=== PATIENT | male | born 1955 | race Caucasian/White ===

== ENCOUNTER → 2018-01-09 12:31 | Outpatient (CLI) | payer MEDICAID, SELFPAY ==
[2018-01-09 13:04] LABS: HCT 50.6 % (40.0-50.0); HGB 16.6 g/dL (13.5-17.5); Mean Corp. HGB Concentration 32.8 g/dL (32.0-36.0); Mean Corpuscular Volume 85.3 fL (80-95); Mean Platelet Volume 9.7 fL (8.0-11.0); Platelet Count 215 x1000/uL (130-400); RBC 5.93 m/cumm (4.50-6.00); RBC Distribution Width 15.4 % (11.8-14.1); White Blood Cell Count 6.84 k/cumm (4.4-10.8)
[2018-01-09 13:23] LABS: Hemoglobin A1C 7.3 % (4.5-6.2)
[2018-01-09 13:52] LABS: ALT 23 U/L (12-78); AST 15 U/L (15-37); BUN 21 mg/dL (7-18); CREATININE 1.07 mg/dL (0.70-1.30)
[2018-01-09 13:54] LABS: Cholesterol 208 mg/dL (50-200); Triglyceride 138 mg/dL (30-150)
== END ==
PROVIDERS: PCP Family Medicine; Visit Provider Dermatology
DX: E11.9 Type 2 diabetes mellitus without complications (principal); L40.0 Psoriasis vulgaris; Z79.899 Other long term (current) drug therapy
CPT/HCPCS: 36415; 84520; 85027; 82465; 82565; 83036; 84450; 84460; 84478

== ENCOUNTER 2018-01-31 11:15 | Outpatient (CLI) | payer MEDICAID, SELFPAY ==
[2018-02-03 14:19] LABS: TB Interpretation Negative (NEGAT)
== END 2018-01-31 11:35 ==
PROVIDERS: PCP Family Medicine; Visit Provider Dermatology
DX: L70.1 Acne conglobata (principal); Z79.899 Other long term (current) drug therapy
CPT/HCPCS: 36415; 86480

== ENCOUNTER 2018-09-10 08:21 | Outpatient (CLI) | payer MEDICAID, SELFPAY ==
[2018-09-10 09:05] LABS: Hemoglobin A1C 8.2 % (4.5-6.2)
== END 2018-09-10 08:41 ==
PROVIDERS: PCP Family Medicine; Visit Provider Family Medicine
DX: E11.9 Type 2 diabetes mellitus without complications (principal)
CPT/HCPCS: 36415; 83036

== ENCOUNTER 2018-09-12 19:37 | Outpatient (REF) | payer MEDICAID, SELFPAY ==
[2018-09-12 20:00] LABS: Bacteria Negative HPF (Negative); C & S Indicated? No; Casts Negative LPF (Negative); Crystals Negative HPF (Negative); Epithelial Cells Rare HPF (Negative); Mucus Negative (Negative); Other Cells Negative (Negative); RBC 0-2 (0-2); WBC 0-2 HPF (0-5)
== END 2018-09-12 19:57 ==
LOC: LBN 19:37
PROVIDERS: PCP Family Medicine; Visit Provider Family Medicine
DX: R31.29 Other microscopic hematuria (principal)
CPT/HCPCS: 81015

== ENCOUNTER 2018-12-18 14:21 | Outpatient (CLI) | payer MEDICAID, SELFPAY ==
[2018-12-18 16:02] LABS: Hemoglobin A1C 8.5 % (4.5-6.2)
== END 2018-12-18 14:41 ==
PROVIDERS: PCP Family Medicine; Visit Provider Family Medicine
DX: E11.9 Type 2 diabetes mellitus without complications (principal)
CPT/HCPCS: 36415; 84520; 85027; 82465; 82565; 83036; 84450; 84460; 84478

== ENCOUNTER 2018-12-21 15:43 | Emergency (ER) | payer MEDICAID, SELFPAY ==
[2018-12-21 15:49] VITALS: BP 102/74; PULSE 123; RESP 16; TEMP 36.7; O2SAT 95
--- NOTE | 2018-12-21 16:20 | ED.GENADUL_ITS ---
Discharge Plan Disposition Patient Disposition: HOME Condition: Stable Discharge Details Chief Complaint: Nausea/Vomit/Diar Clinical Impression: Acute infectious diarrhea Primary Care Provider: Emerson Bailey ED Provider: Onel Garcia [facility]de[facility] Meds and New Rx's Prescriptions: New ciprofloxacin HCl 500 mg tablet 500 mg PO BID Qty: 10 RF: 0 metronidazole 500 mg tablet 500 mg PO BID Qty: 14 RF: 0 Continued Cosentyx (2 Syringes) 150 mg/mL syringe 300 mg SC QWEEK RF: 0 glipizide 10 mg tablet extended release 24hr 10 mg PO DAILY Qty: 90 RF: 3 telmisartan 40 mg tablet 40 mg PO DAILY Qty: 90 RF: 3 aspirin [Aspirin Low-Strength] 81 MG tablet,chewable 81 mg PO DAILY RF: 0 (DME) lancets [[employer] Delica Lancets] 1 EACH misc 1 ea Intradermal DAILY Qty: 100 RF: 4 acetaminophen 325 MG tablet 500 mg PO PRN RF: 0 (DME) OneTouch Ultra Test 1 EACH strip 1 strip Miscellaneous DAILY Qty: 100 RF: 4 (DME) blood-glucose meter [[employer] UltraMini] 1 EACH kit 1 ea Miscellaneous DAILY Qty: 1 RF: 0 sildenafil (antihypertensive) 20 MG tablet 20 - 100 mg PO DAILY PRNQty: 30 RF: 2 metformin 500 mg tablet 500 mg PO BID Qty: 180 RF: 3 ropinirole 0.25 mg tablet 0.5 mg PO HS PRN Qty: 60 RF: 5 dextroamphetamine-amphetamine 20 mg capsule,extended release 24hr 20 mg PO DAILY MDD 1 cap Qty: 30 RF: 0 Jardiance 25 mg tablet 25 mg PO DAILY Qty: 30 RF: 11 Discharge Instructions Instructions: Acute Diarrhea (ED) Additional Instructions: Feel free to return to the emergency department for new or worsening symptoms otherwise slowly advance your diet as tolerated. Make sure that you stay well- hydrated. Take your antibiotics as prescribed and we will call you with any positive results from the pending test. If you have any change in your condition or new symptoms feel free to return to the emergency department for further testing as needed. Referrals: Emerson Bailey [Primary Care Provider] - (As needed for reassessment or if not improving) Discharge Data Discharge Date/Time-TO BE ENTERED AT DEPARTURE: 12/21/18 16:59 Medical Decision Making Patient presenting the emergency department chief complaint of diarrhea. Patient states that he has been having diarrhea for the past 3 weeks but over the past week he started having blood and mucus that he is noted. Patient reports some abdominal pain but only just prior to having a bowel movement. Otherwise patient denies any pain or discomfort, fever chills, vomiting. Physical exam shows nonacute abdomen with no peritoneal findings, no guarding, normal active bowel sounds. Patient has no CVA tenderness and otherwise exam is unremarkable. Plan to check labs for concern of dehydration otherwise I am mostly suspicious of infectious diarrhea given clinical history. Patient does state some heartburn and GERD type symptoms so plan to give Zantac along with IV fluids pending his results. Review of labs show no leukocytosis otherwise nonspecific CBC findings, patient has elevated iron anion gap, elevated glucose, hypomagnesemia, otherwise unremarkable CMP and no specific findings on UA. Patient reassessed after 1 L of fluids and does have some reduction of his tachycardia and is feeling overall better. Did discuss CT imaging with patient which I feel would be low yield but not out of the realm of necessary. After using shared decision-making and discussing risk versus benefit we decided to hold on CT imaging and start antibiotic therapy. Patient placed on Cipro and Flagyl after discussion of risks versus benefit pending stool specimen results. Return precautions were. After discussion of diagnosis and plan of care patient has no further needs, questions, or concerns and states clear understanding to return to the emergency department for any worsening symptoms. HPI General Mode of arrival: ambulatory . Date/Time Provider Initiated Documentation: 12/21/18 15:48 . Limitations to Documentation: no limitations . Information obtained by: patient and RN notes reviewed . History of Present Illness 62 year old M presents to the emergency department with the chief complaint of Diarrhea, heartburn, described as severe, Quality is described as other (Denies any pain), and is localized to the abdomen. Patient started experiencing this week(s) (3) and it has been constant. No relieving factors improve symptom(s), No exacerbating factors reported . Patient did receive the following treatments prior to arrival, other Related Data Home Medications Medication Instructions Recorded Confirmed aspirin [Aspirin Low-Strength] 81 mg PO DAILY tab-cap 10/25/12 12/21/18 lancets [OneTouch Delica Lancets] #100 ea 10/15/14 12/21/18 acetaminophen 500 mg PO PRN 12/21/16 12/21/18 OneTouch Ultra Test #100 strip 08/09/17 12/21/18 blood-glucose meter [OneTouch #1 kit 10/04/17 12/21/18 UltraMini] sildenafil (antihypertensive) 20 - 100 mg PO DAILY PRN #30 01/10/18 12/21/18 tab-cap metformin 500 mg tablet 500 mg PO BID #180 tab-cap 06/11/18 12/21/18 ropinirole 0.25 mg tablet 0.5 mg PO HS PRN #60 tab-cap 09/04/18 12/21/18 glipizide 10 mg tablet, extended 10 mg PO DAILY #90 tab 09/10/18 12/21/18 release 24 hr secukinumab 150 mg/mL subcutaneous 300 mg SC QWEEK 09/10/18 12/21/18 syringe telmisartan 40 mg tablet 40 mg PO DAILY #90 tab 09/10/18 12/21/18 dextroamphetamine-amphetamine ER 20 mg PO DAILY #30 cap MDD 1 cap 11/21/18 12/21/18 20 mg 24hr capsule,extend release empagliflozin 25 mg tablet 25 mg PO DAILY #30 tab-cap 12/16/18 12/21/18 ciprofloxacin HCl 500 mg PO BID #10 tab 12/21/18 metronidazole 500 mg PO BID #14 tab 12/21/18 Previous Rx's Medication Instructions Recorded OneTouch Ultra Test #100 strip 08/09/17 blood-glucose meter [OneTouch #1 kit 10/04/17 UltraMini] metformin 500 mg tablet 500 mg PO BID #180 tab-cap 06/11/18 ropinirole 0.25 mg tablet 0.5 mg PO HS PRN #60 tab-cap 09/04/18 glipizide 10 mg tablet, extended 10 mg PO DAILY #90 tab 09/10/18 release 24 hr telmisartan 40 mg tablet 40 mg PO DAILY #90 tab 09/10/18 dextroamphetamine-amphetamine ER 20 mg PO DAILY #30 cap MDD 1 cap 11/21/18 20 mg 24hr capsule,extend release empagliflozin 25 mg tablet 25 mg PO DAILY #30 tab-cap 12/16/18 ciprofloxacin HCl 500 mg PO BID #10 tab 12/21/18 metronidazole 500 mg PO BID #14 tab 12/21/18 Allergies Allergy/AdvReac Type Severity Reaction Status Date / Time lisinopril AdvReac Mild Other (See Unverified 12/21/18 15:55 Comment) General Stated Complaint: Nausea/Vomit/Diar YAKOV: 3 Review of Systems Constitutional Denies chills, Denies fever(s) and Reports poor appetite Cardiovascular Denies chest pain and Denies dyspnea Respiratory Denies cough and Denies dyspnea Gastrointestinal Reports as per HPI, Reports abdominal pain (Intermittent), Reports melena, Reports hematochezia, Denies change in bowel habits, Denies constipation, Reports heartburn, Reports diarrhea, Denies nausea and Denies vomiting Genitourinary Denies hematuria and Denies dysuria Integumentary/Breasts Denies rash [facility] Medical History Diabetes mellitus Psoriasis Pyloric stenosis Surgical History Repair, Pyloric Stenosis Family History Mother Essential hypertension Stroke Father Diabetes Stroke Colon cancer Sister No problems noted. Sister Alcohol abuse Brother No problems noted. Brother No problems noted. Maternal Grandfather Heart disease Paternal Grandfather Alcohol abuse Stroke Maternal Grandmother No problems noted. Paternal Grandmother Diabetes Cancer Son No problems noted. Daughter No problems noted. Social History Smoking/Tobacco Use Status: Former Tobacco Use Alcohol Intake: current Alcohol Intake frequency: holidays/special occasions only Alcohol type: beer, wine and hard liquor Drug use: Occasionally Substance use type: marijuana Current gender identity: decline to answer What is your relationship status?: refused to answer How often do you talk on the phone with friends or family?: decline to answer How often do you get together with friends or relatives?: decline to answer How often do you attend synagogue or faith services?: decline to answer Do you belong to any clubs or organized social groups?: decline to answer Panel score (0-1 are the most socially isolated patients): 0 What type of physical activity do you participate in: walking and other Duration: decline to answer Frequency: decline to answer Marychuy/Oriental Orthodox: Other Special marychuy needs: No Do you feel safe at home: Yes Do you feel safe in your relationship?: Yes Exam Const General: cooperative Orientation: alert, awake and oriented x3 Resp Effort & Inspection: normal respiratory effort and able to speak in complete sentences Auscultation: clear to auscultation bilaterally Cardio Rate: tachycardic Rhythm: regular rhythm Heart Sounds: S1 normal and S2 normal GI Palpation: soft, no hepatosplenomegaly, not firm, no guarding, no masses, no pulsatile masses, not rigid, no splenomegaly and nontender Auscultation: normal bowel sounds Back/Spine/Pelvis Back: no CVA tenderness Neuro General: alert, awake, oriented x3, gait normal and moves all extremities Course Vital Signs Temperature 36.7 C 12/21/18 15:49 Pulse 123 H 12/21/18 15:49 Respiratory Rate 16 12/21/18 15:49 Blood Pressure 102/74 12/21/18 15:49 Pulse Oximetry 95 12/21/18 15:49 Temperature 36.7 C 12/21/18 15:49 Temperature Source Temporal Artery Scan 12/21/18 15:49 Pulse 123 H 12/21/18 15:49 Respiratory Rate 16 12/21/18 15:49 Respiratory Effort Non-Labored 12/21/18 15:54 Blood Pressure 102/74 12/21/18 15:49 Blood Pressure Position Sitting 12/21/18 15:49 Pulse Oximetry 95 12/21/18 15:49 Oxygen Delivery Method Room Air 12/21/18 15:49 Oxygen Flow Rate 0 12/21/18 15:49 Pain Level 3 12/21/18 15:49
[2018-12-21] MEDS: Normal Saline 1,000 ML 1000 ML IV ×2 (16:35→17:55)
[2018-12-21] MEDS: Normal Saline Flush 10 ML SYR IVP (16:40)
[2018-12-21 16:47] LABS: Abs Immature Grans 0.11 k/cumm (0.0-0.09); Absolute Basophil Count 0.04 k/cumm (0.0-0.2); Absolute Eosinophil Count 0.06 k/cumm (0.0-0.7); Absolute Lymphocyte Count 1.56 k/cumm (1.2-3.4); Absolute Monocyte Count 1.26 k/cumm (0.11-0.7); Absolute Neutrophil Count 7.01 k/cumm (1.2-6.7); Basophils % 0.4; Eosinophils % 0.6; HCT 50.3 % (40.0-50.0); HGB 16.7 g/dL (13.5-17.5); Immature Grans % 1.1; Lymphocytes % 15.5; Mean Corp. HGB Concentration 33.2 g/dL (32.0-36.0); Mean Corpuscular Hemoglobin 26.8 pg (27.0-33.0); Mean Corpuscular Volume 80.6 fL (80-95); Mean Platelet Volume 9.4 fL (8.0-11.0); Monocytes % 12.5; Neutrophils % 69.9; Platelet Count 308 x1000/uL (130-400); RBC 6.24 m/cumm (4.50-6.00); RBC Distribution Width 14.8 % (11.8-14.1); White Blood Cell Count 10.04 k/cumm (4.4-10.8)
[2018-12-21 17:13] LABS: Lipase 311 U/L (73-393)
[2018-12-21 17:35] LABS: ALT 7 U/L (12-78); Albumin 2.8 g/dL (3.4-5.0); Alkaline Phosphatase 76 U/L (46-116); Anion Gap 24.5 mmol/L (3-11); BUN 20 mg/dL (7-18); Bilirubin, Total 0.6 mg/dL (0.2-1.0); CO2 15.5 mmol/L (21.0-32.0); CREATININE 1.38 mg/dL (0.70-1.30); Calcium 10.4 mg/dL (8.5-10.1); Chloride 94 mmol/L (98-107); Estimated GFR 51.88 (mL/min/1.73m2); Glucose 237 mg/dL (70-100); Magnesium 1.5 mg/dL (1.8-2.4); Sodium 134 mmol/L (136-145); Total Protein 7.6 g/dL (6.4-8.2)
[2018-12-21 17:36] LABS: AST 3 U/L (15-37)
[2018-12-21] MEDS: Magnesium Oxide 400 MG TAB PO (17:55)
[2018-12-21 18:01] LABS: Bilirubin Moderate (Negative); Blood Trace-lysed (Negative); Clarity Clear (Clear); Glucose 500 mg/dL (Negative); Ketones >=160 mg/dL (Negative); Leukocyte Esterase Negative (Negative); Nitrite Negative (Negative); Specific Gravity 1.015 (1.005-1.025); Urobilinogen 0.2 EU/dL (Up TO 0.2)
[2018-12-21 18:20] LABS: Bacteria Negative HPF (Negative); Crystals Negative HPF (Negative); Epithelial Cells Negative HPF (Negative); Mucus Heavy (Negative); RBC 0-2 (0-2); WBC Negative HPF (0-5)
[2018-12-21 18:21] LABS: C & S Indicated? No
[2018-12-21 18:24] VITALS: BP 127/72; PULSE 105; RESP 16; TEMP 36.6; O2SAT 96
[2018-12-21] MEDS: metroNIDAZOLE 500 MG TAB PO (18:25)
[2018-12-21] MEDS: Ciprofloxacin 500 MG TAB PO (18:31)
[2018-12-21 18:56] VITALS: BP 125/70; PULSE 105; RESP 18; TEMP 36.6; O2SAT 96
[2018-12-24 11:33] LABS: Campylobacter PCR SEE COMMENTS; Salmonella PCR SEE COMMENTS; Shiga Toxin PCR SEE COMMENTS; Shigella/Enteroinvasive Ecoli SEE COMMENTS
== END 2018-12-21 16:59 | disposition home or self-care (01) ==
PROVIDERS: Emergency Provider Nurse Practitioner Family; PCP Family Medicine
DX: A09 Infectious gastroenteritis and colitis, unspecified (principal); E83.42 Hypomagnesemia; R12 Heartburn; K92.1 Melena; E11.9 Type 2 diabetes mellitus without complications; Z79.84 Long term (current) use of oral hypoglycemic drugs
CPT/HCPCS: 36415; 80053; 83690; 87329; 87505; 96360; 96361; 99284; 81003; 81015; 83735; 85025; 87177; 87324

== ENCOUNTER 2019-01-01 14:28 | Outpatient (CLI) | payer MEDICARE, MEDICAID, SELFPAY ==
[2019-01-01 15:18] LABS: Abs Immature Grans 0.06 k/cumm (0.0-0.09); Absolute Basophil Count 0.02 k/cumm (0.0-0.2); Absolute Eosinophil Count 0.16 k/cumm (0.0-0.7); Absolute Monocyte Count 1.14 k/cumm (0.11-0.7); Absolute Neutrophil Count 6.13 k/cumm (1.2-6.7); Basophils % 0.2; Eosinophils % 1.7; HCT 44.4 % (40.0-50.0); HGB 14.6 g/dL (13.5-17.5); Immature Grans % 0.6; Lymphocytes % 20.2; Mean Corp. HGB Concentration 32.9 g/dL (32.0-36.0); Mean Corpuscular Hemoglobin 26.7 pg (27.0-33.0); Mean Corpuscular Volume 81.3 fL (80-95); Mean Platelet Volume 9.8 fL (8.0-11.0); Monocytes % 12.1; Neutrophils % 65.2; RBC 5.46 m/cumm (4.50-6.00); RBC Distribution Width 14.7 % (11.8-14.1); White Blood Cell Count 9.41 k/cumm (4.4-10.8)
[2019-01-01 15:40] LABS: Platelet Count 393 x1000/uL (130-400)
[2019-01-01 15:46] LABS: ALT 14 U/L (12-78); AST 14 U/L (15-37); Albumin 2.2 g/dL (3.4-5.0); Alkaline Phosphatase 83 U/L (46-116); Anion Gap 10.6 mmol/L (3-11); BUN 9 mg/dL (7-18); Bilirubin, Total 0.6 mg/dL (0.2-1.0); CO2 25.4 mmol/L (21.0-32.0); CREATININE 0.97 mg/dL (0.70-1.30); Calcium 8.1 mg/dL (8.5-10.1); Chloride 98 mmol/L (98-107); Glucose 226 mg/dL (70-100); Potassium 3.9 mmol/L (3.5-5.1); Sodium 134 mmol/L (136-145); Total Protein 6.1 g/dL (6.4-8.2)
== END 2019-01-01 14:48 ==
PROVIDERS: PCP Family Medicine; Visit Provider Family Medicine
DX: K92.1 Melena (principal)
CPT/HCPCS: 36415; 80053; 85025

== ENCOUNTER → 2019-01-05 10:46 | Outpatient (BNVA) | payer MEDICARE, MEDICAID, SELFPAY | PROVIDERS: PCP Family Medicine; Referring Provider Family Medicine; Visit Provider Physical Therapy Assistant | DX: K92.1 Melena (principal); E11.9 Type 2 diabetes mellitus without complications; I10 Essential (primary) hypertension; Z86.010 Personal history of colon polyps; Z80.0 Family history of malignant neoplasm of digestive organs | CPT/HCPCS: 99213 ==

== ENCOUNTER 2019-01-09 10:05 | Day surgery (SDC) | payer MEDICARE, MEDICAID, SELFPAY ==
[2019-01-09 10:43] VITALS: BP 112/68; PULSE 124; RESP 17; TEMP 36.4; O2SAT 97
[2019-01-09] MEDS: Lactated Ringers 1,000 ML 80 ML IV (10:55)
--- NOTE | 2019-01-09 11:22 | PDOC.DSDIS_ITS ---
Discharge Plan Disposition Patient Disposition: HOME Condition: Good Discharge Details Reason For Visit: Colonoscopy Attending Provider: Rosalinda Mata Primary Care Provider: Emerson Bailey Home Meds and New Rx's Prescriptions: Continued Cosentyx (2 Syringes) 150 mg/mL syringe 300 mg SC QWEEK RF: 0 glipizide 10 mg tablet extended release 24hr 10 mg PO DAILY Qty: 90 RF: 3 aspirin [Aspirin Low-Strength] 81 MG tablet,chewable 81 mg PO DAILY RF: 0 (DME) lancets [[employer] Lancets] 1 EACH misc 1 ea Intradermal DAILY Qty: 100 RF: 4 acetaminophen 325 MG tablet 500 mg PO PRN RF: 0 (DME) OneTouch Ultra Test 1 EACH strip 1 strip Miscellaneous DAILY Qty: 100 RF: 4 (DME) blood-glucose meter [[employer] UltraMini] 1 EACH kit 1 ea Miscellaneous DAILY Qty: 1 RF: 0 sildenafil (antihypertensive) 20 MG tablet 20 - 100 mg PO DAILY PRNQty: 30 RF: 2 metformin 500 mg tablet 500 mg PO BID Qty: 180 RF: 3 ropinirole 0.25 mg tablet 0.5 mg PO HS PRN Qty: 60 RF: 5 dextroamphetamine-amphetamine 20 mg capsule,extended release 24hr 20 mg PO DAILY MDD 1 cap Qty: 30 RF: 0 Jardiance 25 mg tablet 25 mg PO DAILY Qty: 30 RF: 11 ranitidine HCl [Zantac] 150 mg Tablet 150 mg PO DAILY RF: 0 Discharge Instructions Additional Instructions: Findings: Your colonoscopy showed significant inflammation. The stomach and duodenum also showed mild inflammation. Follow up: My office will contact you with biopsy results and plan follow up. Please call if you develop: fevers >101.5 Nausea or Vomiting Abdominal pain that is not transient DAY SURGERY UNIT POST COLONOSCOPY INSTRUCTIONS 1. Because there will be medication in your system for the next 24 hours, you may feel a little sleepy. Your coordination will be affected. Therefore: a. Do not drive or operate dangerous equipment for 24 hours. b. Do not drink alcohol beverages for 24 hours (not even beer). c. Plan to go home and rest for the day. 2. Generally there are no restrictions on your activity after a day or so has gone by, but you may feel a bit fatigued for a few days. 3 After you arrive home you may have a light meal and return to a normal diet as you can tolerate it without feeling sick to your stomach. 4. After surgery, you may feel pain or discomfort. This should be only transient, but if it persists please contact your doctor. 5. If there are any questions regarding the findings of your procedure, please feel free to contact your doctor. 6. If you are unable to contact your doctor with a problem, contact the hospital at [phone]. 7. Continue all your regular medications unless directed otherwise. I understand the above instructions and have no questions. Signature of Patient or Responsible Adult Escort Date/Time Name of Responsible Adult Escort Signature of Nurse Date/Time Activity:: Activity as Tolerated Diet:: As Tolerated Discharge Orders Discharge Orders: Discharge Order (Routine); Ordered 01/09/19 Ordered By: Rosalinda Mata DS: Diagnosis Discharge Diagnosis (1) Gastritis and duodenitis: Status: Acute (2) Colitis: Status: Acute (3) History of esophagogastroduodenoscopy (EGD): (4) History of colonoscopy:
--- NOTE | 2019-01-09 12:00 | BOWEL_PTH ---
PATIENT: Umesh Payne LOC: [facility] U#:[id number] AGE/SX: 63/M ROOM: RE01/09/[address]: Rosalinda Mata MD : [id number] BED: DIS: 01/09/2019 SPEC #: [id number] RECD: 01/09/19 12:51 STATUS: MIL REQ #: [id number] FLORIAN: 01/09/19 12:[address]: Rosalinda Mata DEPT: Surgical Specimen RECD BY: Tami Salgado ENTERED: 01/09/19 12:53 SP TYPE: Bowel OTHR DR: Emerson Bailey MD Tissues: 1 - BIOPSY BOWEL 2 - STOMACH BIOPSY 3 - BIOPSY BOWEL 4 - BIOPSY BOWEL 5 - BIOPSY BOWEL Procedures: GROSS AND MICRO LEVEL 4 IMMUNOPEROXIDASE STAIN Comments: [id number]
[2019-01-09 12:55] VITALS: BP 131/83; PULSE 112; RESP 17; TEMP 36.6; O2SAT 98
--- NOTE | 2019-01-09 16:16 | ENDO_ITS ---
DATE OF PROCEDURE: January 09, 2019 PREOPERATIVE DIAGNOSIS: 1. Reflux. 2. Bloody stool. POSTOPERATIVE DIAGNOSIS: 1. Mild gastritis. 2. Duodenitis. 3. Colitis. PROCEDURE: 1. Esophagogastroduodenoscopy with biopsies. 2. Colonoscopy with biopsies. SURGEON: Rosalinda Mata M.D. ANESTHESIA: Monitored Anesthesia Care INDICATIONS: This is a 63-year-old man who reports having a bowel movement about every hour. He has abdominal cramping before having a bowel movement. The stool is blood-tinged. He also has a longte rm history of reflux. There is no family history of inflammatory bowel disease. PROCEDURE: He was placed in the left Bowman position. Propofol was titrated to sedation. The scope w as advanced into his esophagus under direct visualization and passed down into the stomach and duoden um. The duodenum was noted to have patches of inflammation, primarily in the bulb and somewhat in th e second portion. This was biopsied. The stomach also revealed some mild inflammation in the gastri c antrum, which was also biopsied. Retroflex view of the fundus and lesser curvature showed no other abnormalities. The GE junction exhibited no masses, Blanca's, inflammation or strictures. The air was suctioned from the stomach and the scope withdrawn with no other esophageal lesions found. Digital rectal examination revealed no abnormalities. The scope was advanced to the cecum without di fficulty. The patient was noted to have dramatic inflammatory change with pseudo polyps extending fr om the ascending throughout the bowel with some relative sparing in the sigmoid area and inflammation to a lesser degree in the rectal area. The distal ileum was intubated and revealed some punctate in flammation, although no ulcerations. The ileum was biopsied. The scope was slowly withdrawn with bi opsies being performed in the ascending colon and rectum. It would be difficult to identify an adeno matous polyp due to the massive degree of inflammatory change. There was ulceration present as well. This was circumferential, again with the sigmoid colon appearing affected to a much lesser degree, and the inflammation resuming at about 25 cm down to the distal rectum. This is suspicious for infla mmatory bowel disease. He tolerated the procedure well and was stable to recovery. I will start him on steroids and await pathology results. He will also be placed on Omeprazole. cc: Emerson Bailey M.D.
== END 2019-01-09 13:27 | disposition home or self-care (01) ==
PROVIDERS: PCP Family Medicine; Visit Provider Surgery
PROC: (CPT 45380; principal; 2019-01-09 11:00)
DX: K92.1 Melena (principal); K52.9 Noninfective gastroenteritis and colitis, unspecified; K62.89 Other specified diseases of anus and rectum; Z80.0 Family history of malignant neoplasm of digestive organs; K21.9 Gastro-esophageal reflux disease without esophagitis; K26.9 Duodenal ulcer, unspecified as acute or chronic, without hemorrhage or perforation; K29.50 Unspecified chronic gastritis without bleeding; E11.9 Type 2 diabetes mellitus without complications; Z79.84 Long term (current) use of oral hypoglycemic drugs
CPT/HCPCS: 45380; 43239; 88305; 88361; J2370; J2765

== ENCOUNTER 2019-03-13 10:05 | Outpatient (CLI) | payer MEDICARE, MEDICAID, SELFPAY ==
[2019-03-13 11:44] LABS: Albumin 3.3 g/dL (3.4-5.0); Calcium 9.2 mg/dL (8.5-10.1)
== END 2019-03-13 10:25 ==
PROVIDERS: PCP Family Medicine; Visit Provider Family Medicine
DX: K52.9 Noninfective gastroenteritis and colitis, unspecified (principal)
CPT/HCPCS: 36415; 82040; 82310

== ENCOUNTER 2019-03-30 11:01 | Outpatient (CLI) | payer MEDICARE, MEDICAID, SELFPAY ==
[2019-04-02 08:02] LABS: 25-Hydroxy D Total 33 ng/mL; 25-Hydroxy D2 15 ng/mL; 25-Hydroxy D3 18 ng/mL
== END 2019-03-30 11:21 ==
PROVIDERS: PCP Family Medicine; Visit Provider Nurse Practitioner Adult Health
DX: E55.9 Vitamin D deficiency, unspecified (principal); R79.89 Other specified abnormal findings of blood chemistry; K52.9 Noninfective gastroenteritis and colitis, unspecified
CPT/HCPCS: 36415; 82306

== ENCOUNTER 2019-06-10 11:46 | Outpatient (CLI) | payer OTHER, MEDICAID, SELFPAY ==
[2019-06-10 12:25] LABS: Hemoglobin A1C 8.3 % (3.8-5.6)
== END 2019-06-10 12:06 ==
PROVIDERS: PCP Family Medicine; Visit Provider Family Medicine
DX: E11.9 Type 2 diabetes mellitus without complications (principal)
CPT/HCPCS: 36415; 83036

== ENCOUNTER 2019-06-24 13:22 | Outpatient (CLI) | payer OTHER, MEDICAID, SELFPAY ==
[2019-06-24 14:00] LABS: CREATININE 1.06 mg/dL (0.70-1.30)
== END 2019-06-24 13:42 ==
PROVIDERS: PCP Family Medicine; Visit Provider Internal Medicine Gastroenterology
DX: K50.919 Crohn's disease, unspecified, with unspecified complications (principal)
CPT/HCPCS: 82565

== ENCOUNTER 2019-09-16 01:46 | Outpatient (CLI) | payer OTHER, MEDICAID, SELFPAY ==
[2019-09-16 11:24] LABS: Abs Immature Grans 0.02 k/cumm (0.0-0.09); Absolute Basophil Count 0.01 k/cumm (0.0-0.2); Absolute Eosinophil Count 0.12 k/cumm (0.0-0.7); Absolute Lymphocyte Count 3.35 k/cumm (1.2-3.4); Absolute Monocyte Count 0.62 k/cumm (0.11-0.7); Absolute Neutrophil Count 3.77 k/cumm (1.2-6.7); Basophils % 0.1; Eosinophils % 1.5; HCT 47.5 % (40.0-50.0); HGB 14.9 g/dL (13.5-17.5); Immature Grans % 0.3 %; Lymphocytes % 42.5; Mean Corp. HGB Concentration 31.4 g/dL (32.0-36.0); Mean Corpuscular Hemoglobin 22.2 pg (27.0-33.0); Mean Corpuscular Volume 70.8 fL (80-95); Mean Platelet Volume 9.4 fL (8.0-11.0); Monocytes % 7.9; Neutrophils % 47.7; Platelet Count 269 x1000/uL (130-400); RBC 6.71 m/cumm (4.50-6.00); RBC Distribution Width 19.7 % (11.8-14.1); White Blood Cell Count 7.89 k/cumm (4.4-10.8)
[2019-09-16 11:43] LABS: Hemoglobin A1C 7.4 % (3.8-5.6)
[2019-09-16 11:55] LABS: Diff Comment Agrees w/ Instrument; Hypochromasia 2+; Microcytosis 2+
[2019-09-16 12:16] LABS: ALT 21 U/L (16-63); AST 12 U/L (15-37); Albumin 3.7 g/dL (3.4-5.0); Alkaline Phosphatase 84 U/L (46-116); Bilirubin, Direct 0.09 mg/dL (0.00-0.20); Bilirubin, Total 0.3 mg/dL (0.2-1.0); C-Reactive Protein 0.15 mg/dL (0.0-0.3); CREATININE 1.05 mg/dL (0.70-1.30); Total Protein 7.2 g/dL (6.4-8.2)
[2019-09-17 04:30] LABS: Vitamin D 25 Total 24.4 ng/ml (30-100)
[2019-09-18 15:51] LABS: Calculated LDL 107 mg/dL (<100); Cholesterol 193 mg/dL (<200); HDL Cholesterol 50 mg/dL (40-60); Triglyceride 182 mg/dL (<150)
== END 2019-09-16 02:06 ==
PROVIDERS: Nurse Practitioner Adult Health; PCP Family Medicine; Visit Provider Family Medicine
DX: K50.918 Crohn's disease, unspecified, with other complication (principal); K52.9 Noninfective gastroenteritis and colitis, unspecified; R79.89 Other specified abnormal findings of blood chemistry; R73.9 Hyperglycemia, unspecified; E78.5 Hyperlipidemia, unspecified
CPT/HCPCS: 36415; 80061; 80076; 82306; 82565; 83036; 85025; 86140

== ENCOUNTER 2020-03-07 02:01 | Outpatient (CLI) | payer OTHER, MEDICAID, SELFPAY ==
[2020-03-07 11:07] LABS: Hemoglobin A1C 8.4 % (<5.7)
[2020-03-07 12:31] LABS: COMMENT (LAB VIEW ONLY) 131.62 mg/dL; Microalb ug/mg Crea 35.7 ug/mg Cr
== END 2020-03-07 02:21 ==
PROVIDERS: PCP Family Medicine; Visit Provider Family Medicine
DX: E11.65 Type 2 diabetes mellitus with hyperglycemia (principal)
CPT/HCPCS: 36415; 82043; 82570; 83036

== ENCOUNTER 2020-09-07 03:13 | Outpatient (CLI) | payer OTHER, MEDICAID, SELFPAY ==
[2020-09-07 11:36] LABS: Abs Immature Grans 0.06 10^3/uL (0.0-0.06); Absolute Basophil Count 0.04 10^3/uL (0.0-0.2); Absolute Eosinophil Count 0.18 10^3/uL (0.0-0.7); Absolute Lymphocyte Count 3.18 10^3/uL (1.2-3.4); Absolute Monocyte Count 0.57 10^3/uL (0.1-0.8); Absolute Neutrophil Count 5.12 10^3/uL (1.2-6.7); Basophils % 0.4; HCT 50.6 % (40.0-50.0); HGB 16.3 g/dL (13.5-17.5); Immature Grans % 0.7; Lymphocytes % 34.8; MCH 27.7 pg (27.0-33.0); MCHC 32.2 % (32.0-36.0); MCV 85.9 fL (80-95); MPV 9.7 fL (8.0-11.0); Monocytes % 6.2; Neutrophils % 55.9; Nucleated RBC 0 %; Platelet Count 249 10^3/uL (130-400); RBC 5.89 10^6/uL (4.36-5.78); RDW-SD 40.4 fL; WBC 9.15 10^3/uL (4.4-10.8)
[2020-09-07 11:50] LABS: ALT 26 U/L (16-63); AST 12 U/L (15-37); Albumin 3.6 g/dL (3.4-5.0); Alkaline Phosphatase 103 U/L (46-116); Bilirubin, Direct 0.1 mg/dL (0.0-0.2); Bilirubin, Total 0.5 mg/dL (0.2-1.0); C-Reactive Protein 0.08 mg/dL (0.0-0.3); Total Protein 7.4 g/dL (6.4-8.2)
== END 2020-09-07 03:14 | disposition home or self-care (01) ==
PROVIDERS: PCP Family Medicine; Visit Provider Nurse Practitioner Adult Health
DX: K50.919 Crohn's disease, unspecified, with unspecified complications (principal)
CPT/HCPCS: 36415; 80076; 85025; 86140

== ENCOUNTER 2020-09-23 02:50 | Outpatient (CLI) | payer OTHER, MEDICAID, SELFPAY ==
[2020-09-23 15:03] LABS: Hemoglobin A1C 8.9 % (<5.7)
[2020-09-23 15:47] LABS: CREATININE 1.3 mg/dL (0.70-1.30); Estimated GFR 55.23 (mL/min/1.73m2); Potassium 4.9 mmol/L (3.5-5.1)
== END 2020-09-23 02:51 | disposition home or self-care (01) ==
LOC: LBO 02:50
PROVIDERS: PCP Family Medicine; Visit Provider Family Medicine
DX: R73.9 Hyperglycemia, unspecified (principal); I10 Essential (primary) hypertension
CPT/HCPCS: 36415; 82565; 83036; 84132

== ENCOUNTER 2020-10-13 16:42 | Outpatient (REF) | payer OTHER, MEDICAID, SELFPAY | END 2020-10-13 16:43 | disposition home or self-care (01) | LOC: LBN 16:42 | PROVIDERS: PCP Family Medicine; Visit Provider Nurse Practitioner Family | DX: R39.15 Urgency of urination (principal) | CPT/HCPCS: 87077; 87086; 87186 ==

== ENCOUNTER 2021-02-15 00:41 | Outpatient (CLI) | payer OTHER, MEDICAID, SELFPAY ==
[2021-02-15 12:57] LABS: Abs Immature Grans 0.13 10^3/uL (0.0-0.06); Absolute Basophil Count 0.06 10^3/uL (0.0-0.2); Absolute Eosinophil Count 0.19 10^3/uL (0.0-0.7); Absolute Monocyte Count 0.61 10^3/uL (0.1-0.8); Absolute Neutrophil Count 4.87 10^3/uL (1.2-6.7); Basophils % 0.7; Eosinophils % 2.2; HCT 46.9 % (40.0-50.0); HGB 15.1 g/dL (13.5-17.5); Immature Grans % 1.5; Lymphocytes % 31.5; MCH 28.3 pg (27.0-33.0); MCHC 32.2 % (32.0-36.0); MCV 87.8 fL (80-95); MPV 10.1 fL (8.0-11.0); Monocytes % 7.1; Nucleated RBC 0 %; Platelet Count 273 10^3/uL (130-400); RBC 5.34 10^6/uL (4.36-5.78); RDW 13.6 % (11.8-14.1); RDW-SD 43.5 fL; WBC 8.56 10^3/uL (4.4-10.8)
[2021-02-15 13:57] LABS: ALT 33 U/L (16-63); AST 12 U/L (15-37); Albumin 3.7 g/dL (3.4-5.0); Alkaline Phosphatase 98 U/L (46-116); Bilirubin, Direct 0.1 mg/dL (0.0-0.2); Bilirubin, Total 0.4 mg/dL (0.2-1.0); C-Reactive Protein 0.26 mg/dL (0.0-0.3); Total Protein 7.3 g/dL (6.4-8.2)
== END 2021-02-15 00:42 | disposition home or self-care (01) ==
PROVIDERS: PCP Family Medicine; Visit Provider Nurse Practitioner Adult Health
DX: K50.919 Crohn's disease, unspecified, with unspecified complications (principal)
CPT/HCPCS: 36415; 80076; 85025; 86140

== ENCOUNTER 2021-08-04 04:24 | Outpatient (CLI) | payer MEDICARE, MEDICAID, SELFPAY ==
[2021-08-04 14:27] LABS: Absolute Basophil Count 0.06 10^3/uL (0.0-0.2); Absolute Eosinophil Count 0.14 10^3/uL (0.0-0.7); Absolute Neutrophil Count 7.15 10^3/uL (1.2-6.7); Basophils % 0.6; Eosinophils % 1.3; HCT 47.5 % (40.0-50.0); HGB 15.5 g/dL (13.5-17.5); MCH 27.6 pg (27.0-33.0); MCHC 32.6 % (32.0-36.0); MCV 84.5 fL (80-95); MPV 10.1 fL (8.0-11.0); Monocytes % 6.7; Neutrophils % 68.4; Nucleated RBC 0 %; Platelet Count 258 10^3/uL (130-400); RBC 5.62 10^6/uL (4.36-5.78); RDW 12.6 % (11.8-14.1); RDW-SD 38.7 fL; WBC 10.45 10^3/uL (4.4-10.8)
[2021-08-04 15:14] LABS: ALT 22 U/L (16-63); AST 10 U/L (15-37); Albumin 3.8 g/dL (3.4-5.0); Alkaline Phosphatase 129 U/L (46-116); Bilirubin, Direct 0.2 mg/dL (0.0-0.2); Bilirubin, Total 0.6 mg/dL (0.2-1.0); C-Reactive Protein 0.55 mg/dL (0.0-0.3); Total Protein 7.3 g/dL (6.4-8.2)
[2021-08-04 15:17] LABS: ALT 26 U/L (16-63); AST 11 U/L (15-37); Cholesterol 166 mg/dL (<200); Potassium 4.6 mmol/L (3.5-5.1); Triglyceride 295 mg/dL (<150)
[2021-08-04 15:38] LABS: Calculated LDL 63 mg/dL (<100); HDL Cholesterol 44 mg/dL (40-60)
[2021-08-07 14:09] LABS: Ustekinumab Ab <10 AU/mL (<10); Ustekinumab QN 6.4 mcg/mL
== END 2021-08-04 04:25 | disposition home or self-care (01) ==
LOC: LBO 04:24
PROVIDERS: PCP Family Medicine; Visit Provider Internal Medicine Gastroenterology
DX: I10 Essential (primary) hypertension (principal); E78.5 Hyperlipidemia, unspecified; K76.0 Fatty (change of) liver, not elsewhere classified
CPT/HCPCS: 36415; 80061; 80076; 80299; 83520; 84132; 84450; 84460; 85025; 86140

== ENCOUNTER 2021-09-28 03:58 | Outpatient (CLI) | payer MEDICARE, MEDICAID, SELFPAY ==
[2021-09-28 12:55] LABS: COMMENT (LAB VIEW ONLY) 85.65 mg/dL; Microalb ug/mg Crea 26.5 ug/mg Cr
[2021-09-28 13:19] LABS: AST 17 U/L (15-37)
[2021-09-28 13:24] LABS: Hemoglobin A1C 10.4 % (<5.7)
== END 2021-09-28 03:59 | disposition home or self-care (01) ==
LOC: LBO 03:59
PROVIDERS: PCP Family Medicine; Visit Provider Family Medicine
DX: K76.0 Fatty (change of) liver, not elsewhere classified (principal); E11.65 Type 2 diabetes mellitus with hyperglycemia
CPT/HCPCS: 36415; 82043; 82570; 83036; 84450

== ENCOUNTER 2021-12-15 02:17 | Outpatient (CLI) | payer MEDICARE, MEDICAID, SELFPAY ==
[2021-12-15 13:10] LABS: CREATININE 1.7 mg/dL (0.70-1.30)
[2021-12-16 09:03] LABS: Lab Add On Test DONE
[2021-12-16 09:32] LABS: BUN 27 mg/dL (7-18); Potassium 5.1 mmol/L (3.5-5.1)
== END 2021-12-15 02:18 | disposition home or self-care (01) ==
LOC: LBO 02:17
PROVIDERS: PCP Family Medicine; Visit Provider Family Medicine
DX: I10 Essential (primary) hypertension (principal)
CPT/HCPCS: 36415; 84520; 82565; 84132

== ENCOUNTER 2022-03-12 03:39 | Outpatient (CLI) | payer MEDICARE, MEDICAID, SELFPAY ==
[2022-03-12 13:43] LABS: Abs Immature Grans 0.05 10^3/uL (0.0-0.06); Absolute Basophil Count 0.04 10^3/uL (0.0-0.2); Absolute Eosinophil Count 0.24 10^3/uL (0.0-0.7); Absolute Monocyte Count 0.58 10^3/uL (0.1-0.8); Absolute Neutrophil Count 5.13 10^3/uL (1.2-6.7); Basophils % 0.4; Eosinophils % 2.6; HCT 49.3 % (40.0-50.0); HGB 15.7 g/dL (13.5-17.5); Immature Grans % 0.5; Lymphocytes % 35.3; MCH 27.3 pg (27.0-33.0); MCHC 31.8 % (32.0-36.0); MCV 86 fL (80-95); MPV 9.9 fL (8.0-11.0); Monocytes % 6.2; Platelet Count 232 10^3/uL (130-400); RBC 5.75 10^6/uL (4.36-5.78); RDW-SD 40.4 fL; WBC 9.34 10^3/uL (4.4-10.8)
[2022-03-12 13:51] LABS: Hemoglobin A1C 10.2 % (<5.7)
[2022-03-12 14:15] LABS: ALT 30 U/L (16-63); AST 19 U/L (15-37); Albumin 3.8 g/dL (3.4-5.0); Alkaline Phosphatase 102 U/L (46-116); Bilirubin, Direct 0.1 mg/dL (0.0-0.2); Bilirubin, Total 0.5 mg/dL (0.2-1.0); C-Reactive Protein 0.15 mg/dL (0.0-0.3); Total Protein 7.6 g/dL (6.4-8.2)
== END 2022-03-12 03:40 | disposition home or self-care (01) ==
LOC: LBO 03:39
PROVIDERS: PCP Family Medicine; Visit Provider Family Medicine
DX: E11.9 Type 2 diabetes mellitus without complications (principal); K50.919 Crohn's disease, unspecified, with unspecified complications
CPT/HCPCS: 36415; 80076; 83036; 85025; 86140

== ENCOUNTER 2022-09-25 11:30 | Outpatient (CLI) | payer MEDICARE, MEDICAID, SELFPAY ==
[2022-09-25 13:46] LABS: CREATININE 1.5 mg/dL (0.70-1.30); Potassium 4.9 mmol/L (3.5-5.1)
[2022-09-25 13:50] LABS: COMMENT (LAB VIEW ONLY) 50.85 mg/dL; Microalb ug/mg Crea 25.2 ug/mg Cr
[2022-09-25 13:51] LABS: Hemoglobin A1C > 13.0 % (<5.7)
== END 2022-09-25 11:31 | disposition home or self-care (01) ==
PROVIDERS: PCP Family Medicine; Visit Provider Family Medicine
DX: E11.9 Type 2 diabetes mellitus without complications (principal); I10 Essential (primary) hypertension
CPT/HCPCS: 36415; 82043; 82565; 82570; 83036; 84132

== ENCOUNTER 2022-12-12 09:06 | Outpatient (REF) | payer MEDICARE, MEDICAID, SELFPAY | END 2022-12-12 09:07 | disposition home or self-care (01) | LOC: LBN 09:06 | PROVIDERS: PCP Family Medicine; Referring Provider Family Medicine; Visit Provider Physical Therapy Assistant | DX: L02.31 Cutaneous abscess of buttock (principal) | CPT/HCPCS: 87077; 87070; 87205 ==

== ENCOUNTER → 2022-12-12 09:06 | Outpatient (BNVA) | payer MEDICARE, MEDICAID, SELFPAY | PROVIDERS: PCP Family Medicine; Referring Provider Family Medicine; Visit Provider Physical Therapy Assistant | DX: L02.31 Cutaneous abscess of buttock (principal) | CPT/HCPCS: 10060 ==

== ENCOUNTER → 2022-12-14 09:21 | Outpatient (BNVA) | payer MEDICARE, MEDICAID, SELFPAY | PROVIDERS: PCP Family Medicine; Referring Provider Family Medicine; Visit Provider Physical Therapy Assistant | DX: L02.31 Cutaneous abscess of buttock (principal) | CPT/HCPCS: 99213 ==

== ENCOUNTER → 2022-12-17 07:25 | Outpatient (BNVA) | payer MEDICARE, MEDICAID, SELFPAY | PROVIDERS: PCP Family Medicine; Referring Provider Family Medicine; Visit Provider Surgery | DX: L02.31 Cutaneous abscess of buttock (principal) | CPT/HCPCS: 99212; 99213 ==

== ENCOUNTER → 2022-12-21 08:45 | Outpatient (BNVA) | payer MEDICARE, MEDICAID, SELFPAY | PROVIDERS: PCP Family Medicine; Referring Provider Family Medicine; Visit Provider Physical Therapy Assistant | DX: L02.31 Cutaneous abscess of buttock (principal) | CPT/HCPCS: 99213 ==

== ENCOUNTER → 2022-12-31 08:47 | Outpatient (BNVA) | payer MEDICARE, MEDICAID, SELFPAY | PROVIDERS: PCP Family Medicine; Referring Provider Family Medicine; Visit Provider Surgery | DX: L02.31 Cutaneous abscess of buttock (principal) | CPT/HCPCS: 99212 ==

== ENCOUNTER 2023-01-31 04:25 | Outpatient (CLI) | payer MEDICARE, MEDICAID, SELFPAY ==
[2023-01-31 13:31] LABS: Abs Immature Grans 0.06 10^3/uL (0.0-0.06); Absolute Basophil Count 0.04 10^3/uL (0.0-0.2); Absolute Eosinophil Count 0.09 10^3/uL (0.0-0.7); Absolute Lymphocyte Count 2.28 10^3/uL (1.2-3.4); Absolute Monocyte Count 0.72 10^3/uL (0.1-0.8); Absolute Neutrophil Count 5.79 10^3/uL (1.2-6.7); Basophils % 0.4; HCT 54.7 % (40.0-50.0); HGB 17.4 g/dL (13.5-17.5); Immature Grans % 0.7; Lymphocytes % 25.4; MCH 26.9 pg (27.0-33.0); MCHC 31.8 % (32.0-36.0); MCV 84 fL (80-95); MPV 9.2 fL (8.0-11.0); Neutrophils % 64.5; Platelet Count 283 10^3/uL (130-400); RDW 13.2 % (11.8-14.1); RDW-SD 40.6 fL; WBC 8.98 10^3/uL (4.4-10.8)
[2023-01-31 13:37] LABS: RBC 6.48 10^6/uL (4.36-5.78)
[2023-01-31 14:01] LABS: ALT 14 U/L (16-63); AST 12 U/L (15-37); Albumin 3.8 g/dL (3.4-5.0); Alkaline Phosphatase 88 U/L (46-116); Bilirubin, Direct 0.3 mg/dL (0.0-0.2); Bilirubin, Total 1.1 mg/dL (0.2-1.0); C-Reactive Protein 0.82 mg/dL (0.0-0.3); Total Protein 7.8 g/dL (6.4-8.2)
== END 2023-01-31 04:26 | disposition home or self-care (01) ==
LOC: LBO 04:25
PROVIDERS: PCP Family Medicine; Visit Provider Internal Medicine Gastroenterology
DX: K50.919 Crohn's disease, unspecified, with unspecified complications (principal)
CPT/HCPCS: 36415; 80076; 85025; 86140

== ENCOUNTER 2023-06-27 00:35 | Inpatient (IN) | payer MEDICARE, MEDICAID, SELFPAY ==
[2023-06-27] VITALS (93 sets, daily range): BP systolic 112–175; BP diastolic 69–114; PULSE 74–120; RESP 14–32; TEMP 36.6–37.2; O2SAT 92–98
--- NOTE | 2023-06-27 00:30 | RT.EKG_ITS ---
APPROVED REPORT Exam: Resting ECG Reason for Exam: chest pain Patient Location: E HR:104 bpm ECG Measurements Heart Rate 104 AXIS DC 152 P 21 QRSd 79 QRS 4 QT 325 T 11 QTc 427 Conclusion Sinus tachycardia...rate> [address] segment or T wave abnormalities to suggest occlusive [facility]
--- NOTE | 2023-06-27 00:45 | DI.RAD_ITS ---
Exam(s) XR PORTABLE CHEST AP EXAM: XR PORTABLE CHEST AP CLINICAL HISTORY: chest pain, COVD +. TECHNIQUE: 2D digital imaging was performed. COMPARISON: [facility] from 11/22/2017 FINDINGS: Single AP portable view. Heart size is upper normal. The mediastinum is not widened. Lungs are clear. No infiltrates nor obvious pleural effusions. IMPRESSION: No acute pulmonary findings on this single AP portable view of the chest. DATA REPOSITORY: RADIATION DOSE DELIVERED:
--- NOTE | 2023-06-27 00:55 | W.ED.GENAD ---
HPI General Mode of arrival: ambulatory. Date/Time Provider Initiated Documentation: 06/27/23 00:36. Limitations to Documentation: no limitations. Information obtained by: patient. HPI Narrative: 67yo M with HTN, poorly controlled T2DM, no prior cardiac history, presenting for 2 hours of chest pain. Pain woke him from sleep, is dull, substernal, and radiates to his left jaw. Has been constant since onset but is improving, minimal discomfort on arrival. [place] sweaty and slightly nauseated at the onset of pain, those symptoms have since resolved. No difficulty breathing at any point. No orthopnea, dyspnea on exertion, new LE edema. No fevers, chills, rash, vomiting, abdominal pain, back pain, flank pain, numbness, tingling, weakness, lightheadedness, presyncope, syncope, or other concerns. Was in his usual state of health yesterday when he went to sleep. Related Data Home Medications Medication Instructions Recorded Confirmed aspirin 81 mg chewable tablet 81 mg PO DAILY 10/25/12 06/27/23 (Aspirin Low-Strength) lancets 33 gauge ([employer] Ret[employer] SolutionsTouch Delica #100 ea 10/15/14 06/18/23 Lancets) acetaminophen 325 mg tablet 500 mg PO PRN 12/21/16 06/27/23 blood sugar diagnostic ([employer] Retention SolutionsTouch #100 strips 08/09/17 06/18/23 Ultra Test strips) ustekinumab 90 mg/mL subcutaneous 90 mg subcut Q8W 03/11/19 06/27/23 syringe (Stelara) sildenafil 100 mg tablet 100 mg PO DAILY PRN sexual 09/21/20 06/27/23 activity #30 tabs vit C 250 mg-E 90 mg-zinc 40 1 tab PO QAM AND QPM 09/12/21 06/27/23 mg-copper 1 [id number] chew tablet (PreserVision AREDS-2) metformin 500 mg tablet See Rx Instructions .Route 07/07/22 06/27/23 .COMPLEX #180 tabs atorvastatin 10 mg tablet 10 mg PO QPM #90 tabs 08/14/22 06/27/23 ropinirole 0.25 mg tablet 0.5 mg (2 x 0.25 mg) PO HS PRN 09/17/22 06/27/23 #180 tab-caps telmisartan 40 mg tablet 40 mg PO DAILY #90 tabs 09/22/22 06/27/23 pen needle, diabetic 33 gauge x #100 ea 12/12/22 06/18/23 3/16 (Comfort EZ Pen [place]) insulin glargine 100 unit/mL (3 22 - 48 unit (0.22 - 0.48 mL) 05/14/23 06/27/23 mL) subcutaneous pen (Lantus subcut QPM #15 mL Solostar U-100 Insulin) blood-glucose meter #1 ea 05/24/23 06/18/23 dextroamphetamine-amphetamine ER 20 mg PO DAILY PRN 06/27/23 06/27/23 20 mg 24hr capsule,extend release dextroamphetamine-amphetamine ER 20 mg PO DAILY PRN 06/27/23 06/27/23 20 mg 24hr capsule,extend release Previous Rx's Medication Instructions Recorded blood sugar diagnostic (OneTouch #100 strips 08/09/17 Ultra Test strips) sildenafil 100 mg tablet 100 mg PO DAILY PRN sexual 09/21/20 activity #30 tabs metformin 500 mg tablet See Rx Instructions .Route 07/07/22 .COMPLEX #180 tabs atorvastatin 10 mg tablet 10 mg PO QPM #90 tabs 08/14/22 ropinirole 0.25 mg tablet 0.5 mg (2 x 0.25 mg) PO HS PRN 09/17/22 #180 tab-caps telmisartan 40 mg tablet 40 mg PO DAILY #90 tabs 09/22/22 pen needle, diabetic 33 gauge x #100 ea 12/12/22 3/16 (Comfort EZ Pen [place]) insulin glargine 100 unit/mL (3 22 - 48 unit (0.22 - 0.48 mL) 05/14/23 mL) subcutaneous pen (Lantus subcut QPM #15 mL Solostar U-100 Insulin) blood-glucose meter #1 ea 05/24/23 Allergies Allergy/AdvReac Type Severity Reaction Status Date / Time lisinopril AdvReac Mild Persistent Verified 06/27/23 00:49 tickle in throat General Stated Complaint: Chest Pain YAKOV: 3 Review of Systems Narrative: see HPI Exam Narrative Exam Narrative: General: Alert, well appearing, well nourished, in no acute distress. Head: Normocephalic, atraumatic Neck: Trachea midline, ?Neck supple. ENT: ?MMM.? No oropharygeal lesions or exudate. Cardiac: ?RRR, no murmurs appreciated Resp: No respiratory distress. CTAB. Abd: ?Soft, non-distended, nontender : ?No suprapubic tenderness. No CVA tenderness. Extremities: ?No deformities.? No peripheral edema. Neuro: ?GCS 15.? Fluent speech, no dysarthria. Motor- 5/5 strength symmetric bilateral upper and lower extremities Sensation- ?Intact to light touch and symmetric multiple dermatomes including upper and lower extremities Course Vital Signs Vital signs: Vital Signs Temperature 36.8 C 06/27/23 00:43 Pulse 104 H 06/27/23 00:43 Respiratory Rate 18 06/27/23 00:43 Blood Pressure 164/95 H 06/27/23 00:43 Pulse Oximetry 96 06/27/23 00:43 Temperature 36.8 C 06/27/23 00:43 Temperature Source Oral 06/27/23 00:43 Pulse 104 H 06/27/23 00:43 Respiratory Rate 18 06/27/23 00:46 Respiratory Effort Normal, Non-Labored 06/27/23 00:46 Blood Pressure 164/95 H 06/27/23 00:43 Pulse Oximetry 96 06/27/23 00:43 Pain Level 4 06/27/23 00:43 Medical Decision Making 67yo M with HTN, poorly controlled T2DM, no prior cardiac history, presenting for 2 hours of chest pain. Pain woke him from sleep, is dull, substernal, and radiates to his left jaw. Constant, improving, now has minimal discomfort. Hypertensive and slightly tachycardiac on arrival. . Reassuring physical exam. Patient at risk for acute coronary syndrome given age and risk factors; given 324 of aspirin History and exam not suggestive of aortic dissection, would not get CTA. -EKG sinus tachycardia, appropriate intervals, no ST segment or T wave abnormalities to suggest occlusive NH. -CXR independently reviewed, no focal pneumonia or pneumothorax on my view, agree with radiology read below. -Labs reviewed as below, CBC reassuring with no anemia or leukocytosis, CMP with hyperglycemia to 446 otherwise no significant abnormalities ([facility] records reviewed, HgA1C in April was >14). Not in DKA. Given 5 units of short acting insulin, repeat fs in 300's. Lipase normal, unlikely pancreatitis. Dimer negative, would not further pursue pulmonary embolism with CT imaging. Initial troponin negative. -Repeat EKG with no dynamic changes or ischemic findings. Repeat troponin uptrended to 149 Repeat vital signs improved, normotensive. On reassessment he reports pain has entirely resolved. Suspect [id number]. Given loading dose of 600mg plavix. MARYLOU score 4, would benefit from cardiac cath. [place] [facility] [place]; agrees warrants non-emergent cath. Advised heparin and high-dose statin in the meantime. [place] [facility], bed anticipated later today likely afternoon/evening. Discussed with [facility] hospitalist Dr. Do and patient accepted for admission. Imaging Data Radiologic Study: Imaging: X-Ray Radiologist's impression: IMPRESSION: No acute findings Lab Data Lab results reviewed: Yes I reviewed the patient's lab results. Labs: Laboratory Tests Range/Units 06/27/23 06/27/23 00:44 03:48 WBC (4.4-10.8) 10^3/uL 6.46 RBC (4.36-5.78) 10^6/uL 5.92 H Hgb (13.5-17.5) g/dL 16.3 Hct (40.0-50.0) % 49.5 MCV (80-95) fL 84 MCH (27.0-33.0) pg 27.5 MCHC (32.0-36.0) % 32.9 RDW (11.8-14.1) % 13.0 Plt Count (130-400) 10^3/uL 206 MPV (8.0-11.0) fL 9.9 Immature Gran % 0.6 Neutrophils % 56.9 Lymphocytes % 31.7 Monocytes % 7.9 Eosinophils % 2.3 Basophils % 0.6 Nucleated RBC % (0.0-0.3) % 0.0 Absolute Neutrophils (1.2-6.7) 10^3/uL 3.67 Absolute Lymphocytes (1.2-3.4) 10^3/uL 2.05 Absolute Monocytes (0.1-0.8) 10^3/uL 0.51 Absolute Eosinophils (0.0-0.7) 10^3/uL 0.15 Absolute Basophils (0.0-0.2) 10^3/uL 0.04 D-Dimer (<500) ng/mlFEU 374 Sodium (136-145) mmol/L 137 Potassium (3.5-5.1) mmol/L 4.0 Chloride (98-107) mmol/L 103 Carbon Dioxide (21.0-32.0) mmol/L 21.8 Anion Gap (3-11) mmol/L 12.2 H BUN (7-18) mg/dL 23 H Creatinine (0.70-1.30) mg/dL 1.2 Est GFR (CKD-EPI 2020) (mL/min/1.73m2) 65.46 Glucose (74-106) mg/dL 446 H Calcium (8.5-10.1) mg/dL 8.9 Magnesium (1.8-2.4) mg/dL 1.7 L Total Bilirubin (0.2-1.0) mg/dL 0.3 AST (15-37) U/L 22 ALT (16-63) U/L 22 Alkaline Phosphatase (46-116) U/L 122 H Troponin I (< or =60) ng/L < 50 149 H* Total Protein (6.4-8.2) g/dL 6.8 Albumin (3.4-5.0) g/dL 3.2 L Lipase (16-77) U/L 76 Quality:SDIN Health Related Social Needs: No Data to Display Critical Care Time Critical Care Time Critical Care Time: Yes Total Critical Care Time: 32 Attestation: Due to a high probability of clinically significant, life threatening deterioration, the patient required my highest level of preparedness to intervene emergently and I personally spent this critical care time directly and personally managing the patient. This critical care time included obtaining a history; examining the patient; pulse oximetry; ordering and review of studies; arranging urgent treatment with development of a management plan; evaluation of patient's response to treatment; frequent reassessment; and, discussions with other providers. This critical care time was performed to assess and manage the high probability of imminent, life-threatening deterioration that could result in multi-organ failure. It was exclusive of separately billable procedures? PFSH All Active Problems (Updated 06/27/23 @ 04:11 by Tali Monge MD) Non-ST elevation (NSTEMI) myocardial infarction (Acute) Uncontrolled diabetes mellitus with hyperglycemia (Acute) Left buttock abscess (Acute) Chronic fatigue (Acute) Essential tremor (Acute) Urge incontinence (Acute) Anxiety disorder (Acute) Essential hypertension (Acute) UTI (urinary tract infection) (Acute) Adrenal abnormality (Acute) Well adult (Acute) Obesity (Chronic) Hair loss (Acute) Colitis (Acute ~01/09/19) Gastritis and duodenitis (Acute) Bloody stools (Acute) concern is for colon cancer, given FH and wt loss Diabetes mellitus (Acute 01/11/12) Hyperlipidemia (Acute 04/16/14) Hypertriglyceridemia (Acute 11/11/15) Marijuana use, continuous (Acute 11/11/15) Polyp of colon (Acute 04/04/12) Tubular adenoma (incomplete colonoscopy x2) FH colon CA (father) Psoriasis (Acute 03/27/13) Tinnitus (Acute 11/11/15) Urinary tract infectious disease (Acute 01/11/12) Medical History Diabetes mellitus Psoriasis Pyloric stenosis Surgical History History of colonoscopy 01/09/19 History of esophagogastroduodenoscopy (EGD) 01/09/19 Repair, Pyloric Stenosis Family History Mother , 68 Essential hypertension Stroke Father , 67 Diabetes Stroke Colon cancer Sister Epilepsy Sister Alcohol abuse Brother No problems noted. Brother No problems noted. Maternal Grandfather , 78 Heart disease Paternal Grandfather , 82 Alcohol abuse Stroke Maternal Grandmother , 99 No problems noted. Paternal Grandmother , 70 Diabetes Cancer Alcohol abuse Son No problems noted. Daughter No problems noted. Social History Smoking/Tobacco Use Status: Former Tobacco Use tobacco type: e-cigarettes Quit Date: 05/27/73 Smoking risk assessment performed?: Yes Alcohol Intake: current Alcohol Intake frequency: holidays/special occasions only Drug use: Daily Substance use type: marijuana Details: Last used a week ago Caregiver/Support person: No Household members: significant other Communication Needs: Corrective Lenses Pets and animals: No Sexually active: Yes Do you think of yourself as: straight/heterosexual Current gender identity: male and decline to answer What is your relationship status?: living with partner How often do you talk on the phone with friends or family?: three or more times per week How often do you get together with friends or relatives?: decline to answer How often do you attend uatsdin or pentecostalism services?: decline to answer Do you belong to any clubs or organized social groups?: no Panel score (0-1 are the most socially isolated patients): 2 What type of physical activity do you participate in: walking and other Details: gardening, firewood Duration: 15-30 minutes/day Frequency: daily Marychuy/Pentecostalism: None Special marychuy needs: No Seatbelt use: always Helmet use: Yes Helmet use: always Drive intox or ride w/intox delivery motorcycle driver: No Do you feel safe at home: Yes Do you feel safe in your relationship?: Yes Discharge Plan Disposition Patient Disposition: Admit to [facility] Discharge Details Chief Complaint: Chest Pain Clinical Impression: Non-ST elevation (NSTEMI) myocardial infarction Primary Care Provider: Emerson Bailey ED Provider: Tali Monge Meds and New Rx's Prescriptions: Continued sildenafil 100 mg tablet 100 mg PO DAILY PRN (Reason: sexual activity) Qty: 30 5RF Rx Instructions: administer 30 minutes to 4 hours before activity insulin glargine [Lantus Solostar U-100 Insulin] 100 unit/mL (3 mL) insulin pen 22 - 48 unit subcut QPM Qty: 15 3RF (DME) pen needle, diabetic [Comfort EZ Pen [place]] 33 gauge x 3/16 needle See Rx Instructions .ROUTE .MEDSUPPLY Qty: 100 3RF Rx Instructions: As directed aspirin [Aspirin Low-Strength] 81 MG tablet,chewable 81 mg PO DAILY (DME) lancets [OneTouch Delica Lancets] 1 EACH misc 1 ea Intradermal DAILY Qty: 100 Rx Instructions: DX: 250.00 oral meds acetaminophen 325 MG tablet 500 mg PO PRN (DME) OneTouch Ultra Test 1 EACH strip 1 strip Miscellaneous DAILY Qty: 100 4RF Rx Instructions: E11.9 Stelara 90 mg/mL syringe 90 mg SC Q8W PreserVision AREDS-2 250-90-40-1 mg tablet,chewable 1 tab PO QAM AND QPM metformin 500 mg tablet See Rx Instructions .ROUTE .COMPLEX Qty: 180 3RF Dose Instruction: TAKE ONE TABLET BY MOUTH TWICE A DAY Rx Instructions: TAKE ONE TABLET BY MOUTH TWICE A DAY atorvastatin 10 mg tablet 10 mg PO QPM Qty: 90 3RF ropinirole 0.25 mg tablet 0.5 mg PO HS PRN Qty: 180 3RF telmisartan 40 mg tablet 40 mg PO DAILY Qty: 90 3RF (DME) blood-glucose meter Kit 1 ea Miscellaneous DAILY Qty: 1 2RF Rx Instructions: Daily dextroamphetamine-amphetamine 20 mg capsule,extended release 24hr 20 mg PO DAILY MDD 1 tab PRN dextroamphetamine-amphetamine 20 mg capsule,extended release 24hr 20 mg PO DAILY MDD 1 tab PRN Discharge Instructions Referrals: [facility] [Provider Group] Emerson Bailey MD [Primary Care Provider] -
[2023-06-27 00:58] LABS: Abs Immature Grans 0.04 10^3/uL (0.0-0.06); Absolute Basophil Count 0.04 10^3/uL (0.0-0.2); Absolute Eosinophil Count 0.15 10^3/uL (0.0-0.7); Absolute Lymphocyte Count 2.05 10^3/uL (1.2-3.4); Absolute Monocyte Count 0.51 10^3/uL (0.1-0.8); Absolute Neutrophil Count 3.67 10^3/uL (1.2-6.7); Basophils % 0.6; Eosinophils % 2.3; HCT 49.5 % (40.0-50.0); HGB 16.3 g/dL (13.5-17.5); Immature Grans % 0.6; Lymphocytes % 31.7; MCH 27.5 pg (27.0-33.0); MCHC 32.9 % (32.0-36.0); MCV 84 fL (80-95); MPV 9.9 fL (8.0-11.0); Monocytes % 7.9; Neutrophils % 56.9; Platelet Count 206 10^3/uL (130-400); RBC 5.92 10^6/uL (4.36-5.78); RDW-SD 39.8 fL; WBC 6.46 10^3/uL (4.4-10.8)
[2023-06-27] MEDS: Aspirin 81 MG CHEW 324 MG CH (01:00)
--- NOTE | 2023-06-27 01:16 | DI.VRAD_ITS ---
PROCEDURE INFORMATION: Exam: XR Chest Exam date and time: 06/27/2023 1:02 AM Age: 67 years old Clinical indication: Chest wall pain; Additional info: Chest pain, covid+ TECHNIQUE: Imaging protocol: Radiologic exam of the chest. Views: 1 view. COMPARISON: MR ABDOMEN^ADULT 02/08/2020 1:10 PM FINDINGS: Lungs: Unremarkable. No consolidation. Pleural spaces: Unremarkable. No pleural effusion. No pneumothorax. Heart/Mediastinum: Unremarkable. No cardiomegaly. Bones/joints: Unremarkable. IMPRESSION: No acute findings. Dictated and Authenticated by: Keyon Maxwell MD. Ordering:JUANITA Cesar MD
[2023-06-27 01:17] LABS: Lipase 76 U/L (16-77)
[2023-06-27 01:20] LABS: ALT 22 U/L (16-63); AST 22 U/L (15-37); Albumin 3.2 g/dL (3.4-5.0); Alkaline Phosphatase 122 U/L (46-116); Anion Gap 12.2 mmol/L (3-11); BUN 23 mg/dL (7-18); Bilirubin, Total 0.3 mg/dL (0.2-1.0); CO2 21.8 mmol/L (21.0-32.0); CREATININE 1.2 mg/dL (0.70-1.30); Calcium 8.9 mg/dL (8.5-10.1); Chloride 103 mmol/L (98-107); Estimated GFR 65.46 (mL/min/1.73m2); Glucose 446 mg/dL (74-106); Magnesium 1.7 mg/dL (1.8-2.4); Sodium 137 mmol/L (136-145); Total Protein 6.8 g/dL (6.4-8.2); Troponin I < 50 ng/L (< or =60)
[2023-06-27] MEDS: Insulin Aspart 100 UNITS/ML UNIT SC (01:36)
[2023-06-27 02:06] LABS: D-Dimer 374 ng/mlFEU (<500)
--- NOTE | 2023-06-27 03:00 | RT.EKG_ITS ---
APPROVED REPORT Exam: Resting ECG Reason for Exam: chest pain Patient Location: E HR:88 bpm ECG Measurements Heart Rate 88 AXIS AZ 151 P 36 QRSd 77 QRS 1 QT 345 T 4 QTc 417 Conclusion Sinus rhythm...normal P axis, V-rate 60- [address] segment or T wave abnormalities to suggest occlusive [place]
--- NOTE | 2023-06-27 03:50 | NUR.NOTE ---
Referrals faxed to patient pcp and [facility]iology to f/u sooner rather than later for chest pain.Nursing Note:
[2023-06-27 04:10] LABS: Troponin I 149 ng/L (< or =60)
[2023-06-27] MEDS: Clopidogrel 300 MG TAB 600 MG PO (04:21)
[2023-06-27] MEDS: Atorvastatin 40 MG TAB 80 MG PO (05:01)
[2023-06-27] MEDS: Heparin in 0.45% NaCl 25,000 UNIT/250 ML BAG 1000 UNIT IV (05:07)
--- NOTE | 2023-06-27 05:17 | HPE_ITS ---
Date of service: 06/27/23 Time of Service: 05:17 Assessment and Plan Assessment and plan (1) Non-ST elevation (NSTEMI) myocardial infarction: Start date: 06/27/23 Status: Acute Assessment and plan: This is a 67-year-old gentleman presenting with retrosternal chest pain and associated symptoms which awaken him two hours prior to presentation to the ED by car. The patient drove himself to the ED. His symptoms resolved with aspirin and he now has a positive troponin after the initial troponin was negative. EKG indicated non-STEMI type I. Patient was initiated on loading dose of aspirin initially and then eventually loading dose of Plavix 600 mg at 04:00 with IV heparin infusion as recommended by [facility] [place]. He was admitted to the ICU. He has been arranged for transfer to [facility] cardiology under Dr. Bishop's service when bed is available later in the day. He will remain n.p.o. He was loaded with a high-dose atorvastatin having been on low- dose atorvastatin chronically. Metoprolol was initiated with patient already was on Micardis for chronic hypertension. He is allergic to lisinopril. He is an uncontrolled diabetic. He also is obese. Presently his pain-free and troponins will be trended along with other labs with gentle IV hydration for elevated anion gap and hyperglycemia with his diabetes. He also has low magnesium with magnesium repletion and trending lab every 6 hours. He is a full code. (2) Hypomagnesemia: Start date: 06/27/23 Status: Acute Assessment and plan: Mildly low with patient received IV magnesium and labs will be trended every 6 hours with BMP. (3) Diabetes mellitus: Status: Chronic Assessment and plan: Chronic and uncontrolled with hemoglobin A1c above 14 with previous labs. Patient is n.p.o. and will receive moderate dose sliding scale short acting insulin coverage having received regular insulin in the ED. He states that at home he infrequently checks his glucometers and they are usually below 200. Patient also received gentle IV hydration for increased anion gap though his creatinine is not markedly elevated at this time. It has been increased in the past. Trend BMP every 6 hours. Qualifiers: Diabetes mellitus complication status: with hyperglycemia Diabetes mellitus senior living insulin use: with senior living use Diabetes mellitus type: type 2 Qualified Code(s): E11.65 - Type 2 diabetes mellitus with hyperglycemia; Z79.4 - termite renewal inspector (current) use of insulin (4) Essential hypertension: Status: Chronic Assessment and plan: Micardis will be continued with patient to be initiated on low-dose metoprolol and advanced to blood pressure control. (5) Hyperlipidemia: Status: Chronic Assessment and plan: Patient is chronically on low-dose atorvastatin at 10 mg and will receive 80 mg daily at this time. He was given his initial 80 mg dose in the ED. Qualifiers: Hyperlipidemia type: mixed hyperlipidemia Qualified Code(s): E78.2 - Mixed hyperlipidemia History of Present Illness History of Present Illness Chief Complaint: Chest pain radiating to left jaw N arrative: This is a 67-year-old male patient with poorly controlled diabetes and obesity as well as hyperlipidemia and hypertension who was awakened by retrosternal chest pressure and pain which was 5 out of 10 and radiated into the left jaw. He was slightly diaphoretic and nauseated but not complaining of dyspnea. He drove himself to the ED and in the ED received a loading dose of aspirin 324 mg with the pain completely resolving. He did not require nitroglycerin sublingually. His initial troponin and EKG was unrevealing but delta troponin was positive at 149. He remained pain-free and consultation with [facility] cardiology advised to treat as a non-STEMI type I with IV heparin infusion and was excepted under Dr. Bishop's service for transfer to [facility] later during the day after discharges and bed available. Patient will be kept NPO. The patient was given a loading dose of Plavix at about 04 100 after consultation with [facility]. He arrived to the ED just after midnight. At the time I saw the patient he was comfortable and pain-free. He denies any recent exertional symptoms or peripheral edema and has never had chest pain or cardiac disease diagnosed. He does have risk factors. His family history is negative for significant heart disease. Patient was agreeable to treatment plan for transfer to [facility] cardiology service. He is a full code. Review of Systems Narrative: 13 point review of systems otherwise unrevealing or stable. PFSH All Active Problems (Updated 06/27/23 @ 08:57 by Ketan Do) Hypomagnesemia (Acute) Non-ST elevation (NSTEMI) myocardial infarction (Acute) Uncontrolled diabetes mellitus with hyperglycemia (Acute) Left buttock abscess (Acute) Chronic fatigue (Acute) Essential tremor (Acute) Urge incontinence (Acute) Anxiety disorder (Acute) Essential hypertension (Chronic) UTI (urinary tract infection) (Acute) Adrenal abnormality (Acute) Well adult (Acute) Obesity (Chronic) Hair loss (Acute) Colitis (Acute ~01/09/19) Gastritis and duodenitis (Acute) Bloody stools (Acute) concern is for colon cancer, given FH and wt loss Diabetes mellitus (Chronic 01/11/12) Hyperlipidemia (Chronic 04/16/14) Hypertriglyceridemia (Acute 11/11/15) Marijuana use, continuous (Acute 11/11/15) Polyp of colon (Acute 04/04/12) Tubular adenoma (incomplete colonoscopy x2) FH colon CA (father) Psoriasis (Acute 03/27/13) Tinnitus (Acute 11/11/15) Urinary tract infectious disease (Acute 01/11/12) Medical History Pyloric stenosis Psoriasis Diabetes mellitus Surgical History History of colonoscopy 01/09/19 History of esophagogastroduodenoscopy (EGD) 01/09/19 Repair, Pyloric Stenosis Family History Mother , 68 Essential hypertension Stroke Father , 67 Diabetes Stroke Colon cancer Sister Epilepsy Sister Alcohol abuse Brother No problems noted. Brother No problems noted. Maternal Grandfather , 78 Heart disease Paternal Grandfather , 82 Alcohol abuse Stroke Maternal Grandmother , 99 No problems noted. Paternal Grandmother , 70 Diabetes Cancer Alcohol abuse Son No problems noted. Daughter No problems noted. Social History Smoking/Tobacco Use Status: Former Tobacco Use tobacco type: e-cigarettes Quit Date: 05/27/73 Smoking risk assessment performed?: Yes Alcohol Intake: current Alcohol Intake frequency: holidays/special occasions only Drug use: Daily Substance use type: marijuana Details: Last used a week ago Caregiver/Support person: No Household members: significant other Housing: house Communication Needs: Corrective Lenses Pets and animals: No Sexually active: Yes Do you think of yourself as: straight/heterosexual Current gender identity: male and decline to answer What is your relationship status?: living with partner How often do you talk on the phone with friends or family?: three or more times per week How often do you get together with friends or relatives?: decline to answer How often do you attend episcopal or restorationist services?: decline to answer Do you belong to any clubs or organized social groups?: no Panel score (0-1 are the most socially isolated patients): 2 What type of physical activity do you participate in: walking and other Details: gardening, firewood Duration: 15-30 minutes/day Frequency: daily Marychuy/Muslim: None Special marychuy needs: No Seatbelt use: always Helmet use: Yes Helmet use: always Drive intox or ride w/intox regional owner operator truck driver: No Do you feel safe at home: Yes Do you feel safe in your relationship?: Yes Meds Allergies and Home Medications Allergies Allergy/AdvReac Type Severity Reaction Status Date / Time lisinopril AdvReac Mild Persistent Verified 06/27/23 00:49 tickle in throat Home Medications Medication Instructions Recorded Confirmed Type aspirin 81 mg chewable tablet 81 mg PO DAILY 10/25/12 06/27/23 History (Aspirin Low-Strength) lancets 33 gauge (OneTouch Delica #100 ea 10/15/14 06/18/23 History Lancets) acetaminophen 325 mg tablet 500 mg PO PRN 12/21/16 06/27/23 History blood sugar diagnostic (OneTouch #100 strips 08/09/17 06/18/23 Rx Ultra Test strips) ustekinumab 90 mg/mL subcutaneous 90 mg subcut Q8W 03/11/19 06/27/23 History syringe (Stelara) sildenafil 100 mg tablet 100 mg PO DAILY PRN sexual 09/21/20 06/27/23 Rx activity #30 tabs vit C 250 mg-E 90 mg-zinc 40 1 tab PO QAM AND QPM 09/12/21 06/27/23 History mg-copper 1 [id number] chew tablet (PreserVision AREDS-2) metformin 500 mg tablet See Rx Instructions .Route 07/07/22 06/27/23 Rx .COMPLEX #180 tabs atorvastatin 10 mg tablet 10 mg PO QPM #90 tabs 08/14/22 06/27/23 Rx ropinirole 0.25 mg tablet 0.5 mg (2 x 0.25 mg) PO HS PRN 09/17/22 06/27/23 Rx #180 tab-caps telmisartan 40 mg tablet 40 mg PO DAILY #90 tabs 09/22/22 06/27/23 Rx pen needle, diabetic 33 gauge x #100 ea 12/12/22 06/18/23 Rx 3/16 (Comfort EZ Pen Benoit) insulin glargine 100 unit/mL (3 22 - 48 unit (0.22 - 0.48 mL) 05/14/23 06/27/23 Rx mL) subcutaneous pen (Lantus subcut QPM #15 mL Solostar U-100 Insulin) blood-glucose meter #1 ea 05/24/23 06/18/23 Rx dextroamphetamine-amphetamine ER 20 mg PO DAILY PRN 06/27/23 06/27/23 History 20 mg 24hr capsule,extend release Exam Narrative Exam Narrative: General: Patient appears appropriate for age, slightly anxious but in no acute distress. He is alert and oriented x 3. HEENT: Normocephalic, eyes with pupils equal and reactive to light symmetrically, extraocular movement intact with sclera anicteric. Oropharynx with moist mucosa and normal dentition. Neck: Supple without JVD. Back: Normal posture without CVA tenderness. Lungs: Clear to auscultation percussion with no focalizing rales or rhonchi. Heart: Regular rate and rhythm with no murmurs or gallops appreciated. Abdomen: Obese contour, soft and nontender to palpation with no palpable hepatosplenomegaly. Bowel sounds positive all quadrants. Genitalia/rectal: Exam deferred. Extremities: Without clubbing, cyanosis or pitting edema. Peripheral pulses intact. Good capillary refill. Skin: Normal color, warm and dry. Neuro: Cranial nerves II through XII gross intact, no focal motor deficits. No tremor. Psych: Slightly anxious otherwise normal affect and mood. No abnormal thought processes. Remote and recent memory intact. Results Imaging Imaging Studies: Exam: XR Chest Exam date and time: 06/27/2023 1:02 AM Age: 67 years old Clinical indication: Chest wall pain; Additional info: Chest pain, covid+ TECHNIQUE: Imaging protocol: Radiologic exam of the chest. Views: 1 view. COMPARISON: MR ABDOMEN^ADULT 02/08/2020 1:10 PM FINDINGS: Lungs: Unremarkable. No consolidation. Pleural spaces: Unremarkable. No pleural effusion. No pneumothorax. Heart/Mediastinum: Unremarkable. No cardiomegaly. Bones/joints: Unremarkable. IMPRESSION: No acute findings. Labs 06/27/23 06:08 06/27/23 00:44 Labs: Laboratory Results - last 24 hr 06/27/23 06/27/23 00:44 03:48 WBC 6.46 RBC 5.92 H Hgb 16.3 Hct 49.5 MCV 84 MCH 27.5 MCHC 32.9 RDW 13.0 Plt Count 206 MPV 9.9 Immature Gran % 0.6 Neutrophils % 56.9 Lymphocytes % 31.7 Monocytes % 7.9 Eosinophils % 2.3 Basophils % 0.6 Nucleated RBC % 0.0 Absolute Neutrophils 3.67 Absolute Lymphocytes 2.05 Absolute Monocytes 0.51 Absolute Eosinophils 0.15 Absolute Basophils 0.04 D-Dimer 374 Sodium 137 Potassium 4.0 Chloride 103 Carbon Dioxide 21.8 Anion Gap 12.2 H BUN 23 H Creatinine 1.2 Est GFR (CKD-EPI 2020) 65.46 Glucose 446 H Calcium 8.9 Magnesium 1.7 L Total Bilirubin 0.3 AST 22 ALT 22 Alkaline Phosphatase 122 H Troponin I < 50 149 H* Total Protein 6.8 Albumin 3.2 L Lipase 76 Last Vital Signs Temp 36.8 C 06/27/23 00:43 Pulse 87 06/27/23 05:01 Resp 25 H 06/27/23 05:10 BP 136/78 06/27/23 05:01 Pulse Ox 96 06/27/23 00:43 Time Spent Time spent with Patient: >75 minutes Time was spent: preparing to see the patient(eg.review tests), obtaining and/or reviewing separately otained hiistory, ordering medications,tests, procedures, referring, communicating with other health home care and home health aides teacher, indepentently interpreting results, counseling the patient and care coordination
[2023-06-27 05:27] LABS: PTT Activated 24.1 sec (23.6-32.8)
[2023-06-27 05:36] LABS: NT-proBNP 177 pg/mL (<300)
[2023-06-27 06:15] LABS: Abs Immature Grans 0.06 10^3/uL (0.0-0.06); Absolute Basophil Count 0.05 10^3/uL (0.0-0.2); Absolute Eosinophil Count 0.19 10^3/uL (0.0-0.7); Absolute Lymphocyte Count 2.69 10^3/uL (1.2-3.4); Absolute Monocyte Count 0.57 10^3/uL (0.1-0.8); Absolute Neutrophil Count 3.33 10^3/uL (1.2-6.7); Basophils % 0.7; Eosinophils % 2.8; HCT 47.3 % (40.0-50.0); HGB 15.7 g/dL (13.5-17.5); Immature Grans % 0.9; MCH 27.5 pg (27.0-33.0); MCHC 33.2 % (32.0-36.0); MCV 83 fL (80-95); MPV 9.6 fL (8.0-11.0); Monocytes % 8.3; Neutrophils % 48.3; Platelet Count 194 10^3/uL (130-400); RBC 5.71 10^6/uL (4.36-5.78); RDW 13.2 % (11.8-14.1); RDW-SD 39.1 fL; WBC 6.89 10^3/uL (4.4-10.8)
[2023-06-27 06:27] LABS: Magnesium 1.8 mg/dL (1.8-2.4)
[2023-06-27 06:44] LABS: Troponin I 295 ng/L (< or =60)
[2023-06-27] MEDS: Acetaminophen 325 MG TAB PO ×2 (08:04→15:28)
[2023-06-27] MEDS: Aspirin 81 MG CHEW PO (08:05)
[2023-06-27] MEDS: Metoprolol 12.5 MG TAB PO ×2 (08:05→14:20)
[2023-06-27] MEDS: Normal Saline Flush 10 ML SYR IVP (08:07)
[2023-06-27] MEDS: MAGNESIUM SULFATE 2 GM/50 ML BAG IVPB (08:25)
--- NOTE | 2023-06-27 08:30 | PDOC.CMIN ---
Date of service: 06/27/23 Time of Service: 08:30 Care Management Initial Assmt Initial Assessment REASON FOR HOSPITALIZATION:: chest pain/NSTEMI PREVIOUS FUNCTIONAL STATUS/SOCIAL/FAMILY SUPPORTS:: Umesh lives in [place], [place] ADVANCE DIRECTIVES:: On file. Shannon Soto [facility] Has patient been provided with info about the portal/API?: Yes Did the patient sign up for the portal?: Yes CODE STATUS:: Full Code PRIMARY CARE PHYSICIAN:: Emerson Bailey POTENTIAL DISCHARGE NEEDS:: transfer to [facility] for cardiac cath PATIENT/FAMILY EDUCATION NEEDS:: Review of expectations, limitations, discuss Ask Me Three TRANSPORTATION:: [facility] coordinated by nursing animal trainer supervisor PLAN:: Anticipate that Umesh will transfer to [facility] for a cardiac cath. He has been accepted and is waiting for a bed. CM will follow and support Umesh and his discharge planning needs/ PFSH All Active Problems (Updated 06/27/23 @ 05:21 by Ketan Do) Non-ST elevation (NSTEMI) myocardial infarction (Acute) Uncontrolled diabetes mellitus with hyperglycemia (Acute) Left buttock abscess (Acute) Chronic fatigue (Acute) Essential tremor (Acute) Urge incontinence (Acute) Anxiety disorder (Acute) Essential hypertension (Acute) UTI (urinary tract infection) (Acute) Adrenal abnormality (Acute) Well adult (Acute) Obesity (Chronic) Hair loss (Acute) Colitis (Acute ~01/09/19) Gastritis and duodenitis (Acute) Bloody stools (Acute) concern is for colon cancer, given FH and wt loss Diabetes mellitus (Acute 01/11/12) Hyperlipidemia (Acute 04/16/14) Hypertriglyceridemia (Acute 11/11/15) Marijuana use, continuous (Acute 11/11/15) Polyp of colon (Acute 04/04/12) Tubular adenoma (incomplete colonoscopy x2) FH colon CA (father) Psoriasis (Acute 03/27/13) Tinnitus (Acute 11/11/15) Urinary tract infectious disease (Acute 01/11/12) Medical History Pyloric stenosis Psoriasis Diabetes mellitus Surgical History History of colonoscopy 01/09/19 History of esophagogastroduodenoscopy (EGD) 01/09/19 Repair, Pyloric Stenosis Family History Mother , 68 Essential hypertension Stroke Father , 67 Diabetes Stroke Colon cancer Sister Epilepsy Sister Alcohol abuse Brother No problems noted. Brother No problems noted. Maternal Grandfather , 78 Heart disease Paternal Grandfather , 82 Alcohol abuse Stroke Maternal Grandmother , 99 No problems noted. Paternal Grandmother , 70 Diabetes Cancer Alcohol abuse Son No problems noted. Daughter No problems noted. Social History Smoking/Tobacco Use Status: Former Tobacco Use tobacco type: e-cigarettes Quit Date: 05/27/73 Smoking risk assessment performed?: Yes Alcohol Intake: current Alcohol Intake frequency: holidays/special occasions only Drug use: Daily Substance use type: marijuana Details: Last used a week ago Caregiver/Support person: No Household members: significant other Housing: house Communication Needs: Corrective Lenses Pets and animals: No Sexually active: Yes Do you think of yourself as: straight/heterosexual Current gender identity: male and decline to answer What is your relationship status?: living with partner How often do you talk on the phone with friends or family?: three or more times per week How often do you get together with friends or relatives?: decline to answer How often do you attend mosque or anabaptism services?: decline to answer Do you belong to any clubs or organized social groups?: no Panel score (0-1 are the most socially isolated patients): 2 What type of physical activity do you participate in: walking and other Details: gardening, firewood Duration: 15-30 minutes/day Frequency: daily Marychuy/Moravian: None Special marychuy needs: No Seatbelt use: always Helmet use: Yes Helmet use: always Drive intox or ride w/intox high lift driver: No Do you feel safe at home: Yes Do you feel safe in your relationship?: Yes SDOH(Care Management) Screening Will the Patient Participate in the Screening?: Yes Do you worry about having a steady place to live?: no Problems where you live: no known problems In the past 12 months, have you had to go without electric, gas, oil or water in your home?: no Have you or anyone in your house had to go without enough food to eat?: no Has lack of transportation kept you from medical appointments or from doing things needed for daily living?: no Has anyone in your support network made you feel unsafe for any reason?: no
[2023-06-27 10:43] LABS: Troponin I 324 ng/L (< or =60)
[2023-06-27 11:30] LABS: Abs Immature Grans 0.06 10^3/uL (0.0-0.06); Absolute Basophil Count 0.05 10^3/uL (0.0-0.2); Absolute Eosinophil Count 0.19 10^3/uL (0.0-0.7); Absolute Lymphocyte Count 2.71 10^3/uL (1.2-3.4); Basophils % 0.6; Eosinophils % 2.4; HCT 49.7 % (40.0-50.0); HGB 16.5 g/dL (13.5-17.5); Immature Grans % 0.8; Lymphocytes % 34.7; MCH 27.5 pg (27.0-33.0); MCHC 33.2 % (32.0-36.0); MCV 83 fL (80-95); MPV 9.7 fL (8.0-11.0); Monocytes % 7.7; Neutrophils % 53.8; Platelet Count 216 10^3/uL (130-400); RDW 13.2 % (11.8-14.1); RDW-SD 39.4 fL; WBC 7.81 10^3/uL (4.4-10.8)
[2023-06-27 11:31] LABS: RBC 6.01 10^6/uL (4.36-5.78)
[2023-06-27 11:39] LABS: Magnesium 2.2 mg/dL (1.8-2.4)
[2023-06-27 11:42] LABS: PTT Activated 40.7 sec (23.6-32.8)
--- NOTE | 2023-06-27 13:42 | DSE_ITS ---
Date of service: 06/27/23 Time of Service: 13:51 DS: Diagnosis Discharge Diagnosis (1) Non-ST elevation (NSTEMI) myocardial infarction: Status: Acute Asessment and Plan: -Start-initially presented to the ED with chest pain that resolved after being given aspirin -However, troponin was positive and given patient complaint of chest pain, rating to his neck and arm, is highly suspicious for NSTEMI -Was discussed with [facility] [place] who recommended continuing aspirin, beta- radha and starting heparin drip which the patient has been on -Additionally, he has been n.p.o. as it is anticipated he will have left heart catheter (2) Hypomagnesemia: Status: Acute Asessment and Plan: - Repleted (3) Diabetes mellitus: Status: Chronic (4) Essential hypertension: Status: Chronic (5) Hyperlipidemia: Status: Chronic Discharge Plan Disposition Patient Disposition: Transfer-Acute Inpatient Care Specific Acute Inpt Facility: [facility] Condition: Good Discharge Details Reason For Visit: Acute non-STEMI Admit Date/Time: 06/27/23 05:22 Admit Provider: Ketan Do Attending Provider: Ketan Do Primary Care Provider: Emerson Bailey Hospital Course Hospital Course: Patient presented with chest pain and was ultimately determined to have an NSTEMI with an elevated troponin. [facility] was consulted for cardiology services it was recommended that he be placed on aspirin and heparin and that he be transferred for left heart catheterization. Patient did not experience any additional episodes of chest pain while at [facility] and was ultimately determined to be stable for Home Meds and New Rx's Prescriptions: Continued sildenafil 100 mg tablet 100 mg PO DAILY PRN (Reason: sexual activity) Qty: 30 5RF Rx Instructions: administer 30 minutes to 4 hours before activity insulin glargine [Lantus Solostar U-100 Insulin] 100 unit/mL (3 mL) insulin pen 22 - 48 unit subcut QPM Qty: 15 3RF (DME) pen needle, diabetic [Comfort EZ Pen Utopia] 33 gauge x 3/16 needle See Rx Instructions .ROUTE .MEDSUPPLY Qty: 100 3RF Rx Instructions: As directed aspirin [Aspirin Low-Strength] 81 MG tablet,chewable 81 mg PO DAILY (DME) lancets [OneTouch Delica Lancets] 1 EACH misc 1 ea Intradermal DAILY Qty: 100 Rx Instructions: DX: 250.00 oral meds acetaminophen 325 MG tablet 500 mg PO PRN (DME) OneTouch Ultra Test 1 EACH strip 1 strip Miscellaneous DAILY Qty: 100 4RF Rx Instructions: E11.9 Stelara 90 mg/mL syringe 90 mg SC Q8W PreserVision AREDS-2 250-90-40-1 mg tablet,chewable 1 tab PO QAM AND QPM metformin 500 mg tablet See Rx Instructions .ROUTE .COMPLEX Qty: 180 3RF Dose Instruction: TAKE ONE TABLET BY MOUTH TWICE A DAY Rx Instructions: TAKE ONE TABLET BY MOUTH TWICE A DAY atorvastatin 10 mg tablet 10 mg PO QPM Qty: 90 3RF ropinirole 0.25 mg tablet 0.5 mg PO HS PRN Qty: 180 3RF telmisartan 40 mg tablet 40 mg PO DAILY Qty: 90 3RF (DME) blood-glucose meter Kit 1 ea Miscellaneous DAILY Qty: 1 2RF Rx Instructions: Daily dextroamphetamine-amphetamine 20 mg capsule,extended release 24hr 20 mg PO DAILY MDD 1 tab PRN Discharge Instructions Referrals: [facility] [Provider Group] Emerson Bailey MD [Primary Care Provider] - Activity:: Activity as Tolerated Equipment/Supplies:: No Equipment Needed Diet:: As Tolerated Discharge Orders Discharge Orders: Discharge Order (Routine); Ordered 06/27/23 Ordered By: Raghu Mccarty DS: Summary Time Spent with Patient providing and/or coordinating discharge services: Greater than 30 minutes Status at Discharge Functional status at discharge: independent ambulation Overall status at discharge: patient is back to baseline Mental Status: mental status grossly normal Speech and Movement: speech and movement normal Mood: congruent mood Affect: normal affect Quality:SDOH Health Related Social Needs: No Data to Display Exam Narrative Exam Narrative: Well-appearing older obese gentleman laying in bed in no acute distress, ANO x 4, heart regular rhythm, lungs clear to auscultation bilaterally, abdomen soft, nontender, Psych Mental Status: mental status grossly normal Speech and Movement: speech and movement normal Mood: congruent mood Affect: normal affect DS: Data Vitals/I&O Vitals and I&O: Vital Signs Temperature 98.2 F 06/27/23 08:37 Temperature Source Temporal Artery Scan 06/27/23 08:37 Pulse 79 06/27/23 08:46 Pulse 81 06/27/23 11:20 Respiratory Rate 21 06/27/23 11:20 Respiratory Effort Normal, Non-Labored 06/27/23 08:37 Respiratory Depth Normal 06/27/23 08:37 Respiratory Pattern Normal 06/27/23 08:37 Blood Pressure 158/98 H 06/27/23 13:41 Blood Pressure Mean 119 06/27/23 08:46 Blood Pressure Position Sitting 06/27/23 08:37 Pulse Oximetry 98 06/27/23 13:41 Oxygen Delivery Method Room Air 06/27/23 13:41 Oxygen Flow Rate 0 06/27/23 13:41 Pain Level 5 06/27/23 08:37 Intake & Output 06/26/23 06/27/23 06/27/23 17:59 05:59 17:59 Intake Total 260 / 260 Balance 260 / 260 Weight 226 lb 13.69 oz 222 lb 14.197 oz Intake: IV 260 / 260 Data Completed and Pending Labs on day of discharge: Labs from last 24 hours 06/27/23 06/27/23 06/27/23 23:35 21:45 17:45 WBC Pending RBC Pending Hgb Pending Hct Pending MCV Pending MCH Pending MCHC Pending RDW Pending Plt Count Pending MPV Pending Immature Gran % Pending Neutrophils % Pending Lymphocytes % Pending Monocytes % Pending Eosinophils % Pending Basophils % Pending Nucleated RBC % Absolute Neutrophils Pending Absolute Lymphocytes Pending Absolute Monocytes Pending Absolute Eosinophils Pending Absolute Basophils Pending APTT D-Dimer Sodium Potassium Chloride Carbon Dioxide Anion Gap BUN Creatinine Est GFR (CKD-EPI 2020) Glucose Calcium Magnesium Pending Total Bilirubin AST ALT Alkaline Phosphatase Troponin I Pending Cancelled NT-Pro-B Natriuret Pep Total Protein Albumin Lipase 06/27/23 06/27/23 06/27/23 17:35 15:00 13:45 WBC Pending RBC Pending Hgb Pending Hct Pending MCV Pending MCH Pending MCHC Pending RDW Pending Plt Count Pending MPV Pending Immature Gran % Pending Neutrophils % Pending Lymphocytes % Pending Monocytes % Pending Eosinophils % Pending Basophils % Pending Nucleated RBC % Absolute Neutrophils Pending Absolute Lymphocytes Pending Absolute Monocytes Pending Absolute Eosinophils Pending Absolute Basophils Pending APTT D-Dimer Sodium Potassium Chloride Carbon Dioxide Anion Gap BUN Creatinine Est GFR (CKD-EPI 2020) Glucose Calcium Magnesium Pending Total Bilirubin AST ALT Alkaline Phosphatase Troponin I Pending Cancelled NT-Pro-B Natriuret Pep Total Protein Albumin Lipase 06/27/23 06/27/23 06/27/23 11:15 10:15 07:40 WBC 7.81 RBC 6.01 H Hgb 16.5 Hct 49.7 MCV 83 MCH 27.5 MCHC 33.2 RDW 13.2 Plt Count 216 MPV 9.7 Immature Gran % 0.8 Neutrophils % 53.8 Lymphocytes % 34.7 Monocytes % 7.7 Eosinophils % 2.4 Basophils % 0.6 Nucleated RBC % 0.0 Absolute Neutrophils 4.20 Absolute Lymphocytes 2.71 Absolute Monocytes 0.60 Absolute Eosinophils 0.19 Absolute Basophils 0.05 APTT 40.7 H D-Dimer Sodium Potassium Chloride Carbon Dioxide Anion Gap BUN Creatinine Est GFR (CKD-EPI 2020) Glucose Calcium Magnesium 2.2 Total Bilirubin AST ALT Alkaline Phosphatase Troponin I 324 H* Cancelled NT-Pro-B Natriuret Pep Total Protein Albumin Lipase 06/27/23 06/27/23 06/27/23 06:08 04:54 03:48 WBC 6.89 RBC 5.71 Hgb 15.7 Hct 47.3 MCV 83 MCH 27.5 MCHC 33.2 RDW 13.2 Plt Count 194 MPV 9.6 Immature Gran % 0.9 Neutrophils % 48.3 Lymphocytes % 39.0 Monocytes % 8.3 Eosinophils % 2.8 Basophils % 0.7 Nucleated RBC % 0.0 Absolute Neutrophils 3.33 Absolute Lymphocytes 2.69 Absolute Monocytes 0.57 Absolute Eosinophils 0.19 Absolute Basophils 0.05 APTT 24.1 D-Dimer Sodium Potassium Chloride Carbon Dioxide Anion Gap BUN Creatinine Est GFR (CKD-EPI 2020) Glucose Calcium Magnesium 1.8 Total Bilirubin AST ALT Alkaline Phosphatase Troponin I 295 H* 149 H* NT-Pro-B Natriuret Pep 177 Total Protein Albumin Lipase 06/27/23 00:44 WBC 6.46 RBC 5.92 H Hgb 16.3 Hct 49.5 MCV 84 MCH 27.5 MCHC 32.9 RDW 13.0 Plt Count 206 MPV 9.9 Immature Gran % 0.6 Neutrophils % 56.9 Lymphocytes % 31.7 Monocytes % 7.9 Eosinophils % 2.3 Basophils % 0.6 Nucleated RBC % 0.0 Absolute Neutrophils 3.67 Absolute Lymphocytes 2.05 Absolute Monocytes 0.51 Absolute Eosinophils 0.15 Absolute Basophils 0.04 APTT D-Dimer 374 Sodium 137 Potassium 4.0 Chloride 103 Carbon Dioxide 21.8 Anion Gap 12.2 H BUN 23 H Creatinine 1.2 Est GFR (CKD-EPI 2020) 65.46 Glucose 446 H Calcium 8.9 Magnesium 1.7 L Total Bilirubin 0.3 AST 22 ALT 22 Alkaline Phosphatase 122 H Troponin I < 50 NT-Pro-B Natriuret Pep Total Protein 6.8 Albumin 3.2 L Lipase 76 PFSH All Active Problems (Updated 06/27/23 @ 08:57 by Ketan Do) Hypomagnesemia (Acute) Non-ST elevation (NSTEMI) myocardial infarction (Acute) Uncontrolled diabetes mellitus with hyperglycemia (Acute) Left buttock abscess (Acute) Chronic fatigue (Acute) Essential tremor (Acute) Urge incontinence (Acute) Anxiety disorder (Acute) Essential hypertension (Chronic) UTI (urinary tract infection) (Acute) Adrenal abnormality (Acute) Well adult (Acute) Obesity (Chronic) Hair loss (Acute) Colitis (Acute ~01/09/19) Gastritis and duodenitis (Acute) Bloody stools (Acute) concern is for colon cancer, given FH and wt loss Diabetes mellitus (Chronic 01/11/12) Hyperlipidemia (Chronic 04/16/14) Hypertriglyceridemia (Acute 11/11/15) Marijuana use, continuous (Acute 11/11/15) Polyp of colon (Acute 04/04/12) Tubular adenoma (incomplete colonoscopy x2) FH colon CA (father) Psoriasis (Acute 03/27/13) Tinnitus (Acute 11/11/15) Urinary tract infectious disease (Acute 01/11/12) Medical History Pyloric stenosis Psoriasis Diabetes mellitus Surgical History History of colonoscopy 01/09/19 History of esophagogastroduodenoscopy (EGD) 01/09/19 Repair, Pyloric Stenosis Family History (Updated 06/27/23 @ 11:17 by Janine Munoz) Mother , 68 Essential hypertension Stroke Father , 67 Diabetes Stroke Colon cancer Alcohol abuse Sister Epilepsy Sister Alcohol abuse Depression Brother Depression Brother No problems noted. Maternal Grandfather , 78 Heart disease Paternal Grandfather , 82 Alcohol abuse Stroke Maternal Grandmother , 99 No problems noted. Paternal Grandmother , 70 Diabetes Cancer Alcohol abuse Son No problems noted. Daughter No problems noted. Social History (Updated 06/27/23 @ 11:16 by Janine Munoz) Smoking/Tobacco Use Status: Former Tobacco Use tobacco type: e-cigarettes Quit Date: 05/27/73 Smoking risk assessment performed?: Yes Alcohol Intake: current Alcohol Intake frequency: holidays/special occasions only Drug use: Daily Substance use type: marijuana Details: Last used a week ago Adopted: No Caregiver/Support person: No Foster care: No Household members: none Housing: house Number of Children: 3 number of grandchildren: 5 Communication Needs: Hard of Hearing and Corrective Lenses Education Level: college Do you need help understanding health information?: Never current occupation: retired Pets and animals: No Sexually active: No Do you think of yourself as: straight/heterosexual Current gender identity: male What is your relationship status?: How often do you talk on the phone with friends or family?: decline to answer How often do you get together with friends or relatives?: twice per week How often do you attend scientologist or quaker services?: decline to answer Do you belong to any clubs or organized social groups?: decline to answer Panel score (0-1 are the most socially isolated patients): 0 What type of physical activity do you participate in: walking and other Details: gardening, firewood Duration: 15-30 minutes/day Frequency: daily Marychuy/Zoroastrianism: Non spiritism Special marychuy needs: No Agree to transfusion: Yes Seatbelt use: always Helmet use: Yes Helmet use: sometimes Drive intox or ride w/intox motorcoach driver: No Working smoke detector in home: Yes Carbon monox detector in home: Yes Firearms in home: Yes Do you feel safe at home: Yes Do you feel safe in your relationship?: Yes Victim of physical abuse: No Victim of emotional abuse: No Victim of sexual abuse: No Time Spent with Patient Time Spent with Patient: <45 minutes Time was spent: preparing to see the patient(eg.review tests), obtaining and/or reviewing separately otained hiistory, ordering medications,tests, procedures, referring, communicating with other health assurance services manager health care, indepentently interpreting results, counseling the patient and care coordination
[2023-06-27] MEDS: Normal Saline 1,000 ML 75 ML IV (14:54)
[2023-06-27 15:40] LABS: Troponin I 173 ng/L (< or =60)
--- NOTE | 2023-06-27 18:18 | PDOC.CMPRO ---
Date of service: 06/27/23 Time of Service: 18:18 Care Management Progress Note Progress Note Text Progress Note Text: Umesh was admitted to [facility] early in the morning of 06/27/23. He was found to have an NSEMI and was accepted for transfer to [facility]. A bed became available this afternoon and he was transported to [facility] via EMS coordinated by nursing order department supervisor. SDOH(Care Management) Screening Will the Patient Participate in the Screening?: Yes Do you worry about having a steady place to live?: no Problems where you live: no known problems In the past 12 months, have you had to go without electric, gas, oil or water in your home?: no Have you or anyone in your house had to go without enough food to eat?: no Has lack of transportation kept you from medical appointments or from doing things needed for daily living?: no Has anyone in your support network made you feel unsafe for any reason?: no
== END 2023-06-27 15:45 | disposition short-term general hospital (02) | DRG 282 ==
LOC: ER 06:32 → ICU 06:34
PROVIDERS: Family Medicine; Admitting Provider Family Medicine; Emergency Provider Student in an Organized Health Care Education/Training Program; PCP Family Medicine; Visit Provider Family Medicine
DX: I21.4 Non-ST elevation (NSTEMI) myocardial infarction (principal); E83.42 Hypomagnesemia; E11.65 Type 2 diabetes mellitus with hyperglycemia; I10 Essential (primary) hypertension; Z79.4 Long term (current) use of insulin; E78.2 Mixed hyperlipidemia; Z68.32 Body mass index [BMI] 32.0-32.9, adult
CPT/HCPCS: 00123; 36415; 36416; 80053; 82962; 83690; 93005; 96365; 99291; 71045; 83735; 83880; 84484; 85025; 85379; 85730; 93010; 99236; J1644; J1815; J3475; J3490

== ENCOUNTER 2023-07-12 13:51 | Outpatient (CLI) | payer MEDICARE, MEDICAID, SELFPAY ==
--- NOTE | 2023-07-12 13:45 | RT.EKG_ITS ---
APPROVED REPORT Exam: Resting ECG Reason for Exam: baseline Patient Location: O HR:97 bpm ECG Measurements Heart Rate 97 AXIS ID 128 P 12 QRSd 77 QRS 0 QT 318 T -3 QTc 404 Conclusion Sinus rhythm...normal P axis, V-rate 50- 99 Normal Electrocardiogram
== END 2023-07-12 13:52 | disposition home or self-care (01) ==
LOC: DI.CARD 13:53
PROVIDERS: PCP Family Medicine; Referring Provider Family Medicine; Visit Provider Internal Medicine Cardiovascular Disease
DX: I21.4 Non-ST elevation (NSTEMI) myocardial infarction (principal)
CPT/HCPCS: 93010

== ENCOUNTER → 2023-07-12 13:51 | Outpatient (BNVA) | payer MEDICARE, MEDICAID, SELFPAY | PROVIDERS: PCP Family Medicine; Referring Provider Family Medicine; Visit Provider Internal Medicine Cardiovascular Disease | DX: I10 Essential (primary) hypertension (principal); R53.82 Chronic fatigue, unspecified; I21.4 Non-ST elevation (NSTEMI) myocardial infarction | CPT/HCPCS: 93005; 99214 ==

== ENCOUNTER 2023-07-12 14:16 | Outpatient (RCR) | payer MEDICARE, MEDICAID, SELFPAY ==
--- NOTE | 2023-07-12 14:15 | HOLTER_ITS ---
APPROVED REPORT Conclusion This is a 48-hour Holter monitor Rhythm throughout is sinus. Average heart 88. Minimum was 72, maximum 142 There was 1 isolated premature ventricular contraction There were rare atrial triplets There were several brief self-limited atrial runs There was no atrial fibrillation, no high-grade AV block,no pauses greater than 3 seconds No patient symptoms were reported
== END 2023-07-25 23:59 | disposition home or self-care (01) ==
LOC: CARDOPNVT 14:16
PROVIDERS: PCP Family Medicine; Visit Provider Family Medicine
DX: R00.1 Bradycardia, unspecified (principal)
CPT/HCPCS: 93227; 93225; 93226